=== PATIENT | male | born 1955 | race Caucasian/White ===

== ENCOUNTER 2022-08-05 12:45 | Emergency (ER) | payer OTHER ==
--- OUTSIDE RECORDS SUMMARY | 2022-08-05 12:50 | XMS REPORT | Continuity of Care Document ---
:1955 Author Organization [facility] t Address [address] [facility] [address] [place] [address] Care Team Providers Name Role Phone Viktoria Hernandez DO Primary Care Physician Yolanda Valadez MD Attending Clinician Provider, Unknown Attending Clinician Unavailable Duke German MA Attending Clinician Unavailable Nohemi Girard MA Attending Clinician Unavailable EDELMIRA DIAZ Attending Clinician Unavailable MD EDELMIRA DIAZ Attending Clinician Unavailable GOPAL GIORDANO Attending Clinician Unavailable YOLANDA VALADEZ Admitting Clinician Unavailable MD EDELMIRA DIAZ Admitting Clinician Unavailable Payers Payer Name Policy Type Policy Number Effective Date Expiration Date S ource Problems Condition Condition Condition Status Onset Resolution Last Treating Co mments Source Name Details Category Date Date Treatment Clinician Date Coronary Coronary Disease Active 2021-06 [facility] artery artery 2-21 st disease disease 00:00: Hospita due to due to 00 l lipid rich lipid rich plaque plaque Abnormal Abnormal Disease Active [facility] stress stress 8-08 st test test 00:00: Hospita 00 l Angina Angina Disease Active [facility] pectoris pectoris 8 st 00:00: [facility]osp[facility] 00 l CAD in CAD in Disease Active [facility] artery artery 00:00: [facility] 00 l Coronary Coronary Disease Active [facility] artery artery 2-07 st disease disease 00:00: [facility] involving involving [facility] [place] [facility] with heart with angina angina pectoris pectoris Primary Primary Disease Active [facility] hypertensi hypertensi 07-12 st on on 00:00: Hospita 00 l Hyperlipid Hyperlipid Disease Active [facility] emia emia 07-12 st 00:00: [facility]ospita 00 l History of History of Disease Active [facility] coronary coronary 07-12 st artery artery 00:00: Hospita stent stent 00 l placement placement Allergies, Adverse Reactions, Alerts Allergy Allergy Status Severity Reaction(s) Onset Inactive Treating Comm ents Source Name Type Date Date Clinician No Known Propensi Active Method i Drug ty to 11-03 Allergie adverse 00:00: Hospita s reaction 00 l s to drug Family History Family Member Diagnosis Comments Start Date Stop Date Source Natural father Cancer [facility] Natural father Other [facility] Natural mother Arthritis [facility] Social History Social Habit Start Date Stop Date Quantity Comments Source Alcohol intake 2022-06-23 2022-06-23 Current drink[facility] of [facility] 00:00:00 00:00:00 alcohol (finding) [facility] Tobacco use and 2019-02-05 2019-02-05 Smokeless tobacco [facility] exposure 00:00:00 00:00:00 non-user Hospital Alcohol Comment 2015-11-04 2015-11-04 Occasional [facility] 00:00:00 00:00:00 Hospital Sex Ass[birth year] At [birth year] M [facility] 00:00:00 00:00:00 Hospital Smoking Status Start Date Stop Date Source Never smoked tobacco [facility] Medications Ordered Filled Start Stop Current Ordering Indication Dosage Frequency Signature Comments Components Source Medication Medication Date Date Medication? Clinician (SIG) Name Name levothyroxi Yes 50ug QD Take 1 [facility] ne 2-14 tablet (50 st (SYNTHROID, 10:43: mcg total) Hospita LEVOXYL) 50 42 by mouth l mcg tablet daily. empaglifloz Yes 25mg QD Take 1 [facility] in 25 mg 2-14 tablet (25 st tablet 10:43: mg total) Hospit a 42 by mouth l nightly. clopidogreL 2022- 75mg QD Take 1 [facility] (PLAVIX) 75 - 05-20 tablet (75 s t mg tablet 00:00: 04:59 mg total) [facility]ita 00 :00 by mouth l daily for 120 doses. aspirin 2022-2022- Yes 81mg QD Take 1 [facility] (ECOTRIN) 06-23 05-20 tablet (81 st 81 MG 00:00: 04:59 mg total) Hospit a enteric 00 :00 by mouth l coated daily for tablet 120 doses. aspirin 81 2022-2022- Yes 81mg QD Chew 1 [facility] mg chewable 06-22-19 tablet (81 s t tablet 00:00: 04:59 mg total) [facility]pi ta 00 :00 daily for l 90 days. clopidogreL 2022- Yes 75mg QD Take 1 [facility] (PLAVIX) 75 06-22- tablet (75 s t mg tablet 00:00: 04:59 mg total) [facility] 00 :00 by mouth l daily for 90 days. hydroCHLORO 3-0 Yes 12.5mg QD Take 1 [facility] thiazide 1-[address] (MICROZIDE) 00:00: (12.5 mg Ho spita 12.5 mg 00 total) by l capsule mouth nightly. valsartan 3-0 Yes 80mg QD Take 0.5 [facility] (DIOVAN) 1-[address] 160 MG 00:00: (80 mg Hospita tablet 00 total) by l mouth nightly. hydroCHLORO 3-0 Yes 12.5mg QD Take 1 [facility] thiazide 1-[address] (MICROZIDE) 00:00: (12.5 mg Ho spita 12.5 mg 00 total) by l capsule mouth nightly. valsartan 3-0 Yes 80mg QD Take 0.5 [facility] (DIOVAN) 1-[address] 160 MG 00:00: (80 mg Hospita tablet 00 total) by l mouth nightly. hydroCHLORO 3-0 Yes 12.5mg QD Take 1 [facility] thiazide 1-[address] (MICROZIDE) 00:00: (12.5 mg [facility] 12.5 mg 00 total) by l capsule mouth nightly. valsartan 2023-0 Yes 80mg QD Take 0.5 [facility] (DIOVAN) 1-[address] 160 MG 00:00: (80 mg Hospita tablet 00 total) by l mouth nightly. levothyroxi 2023-0 Yes 50ug QD Take 50 [facility] ne 1-[address] (SYNTHROID, 08:37: mouth [facility]pi ta LEVOXYL) 50 03 daily. l mcg tablet empaglifloz 3-0 Yes 25mg QD Take 1 [facility] in 25 mg 1-06 tablet (25 st tablet 08:37: mg total) Hospit a 03 by mouth l nightly. levothyroxi 2023-0 Yes 50ug QD Take 50 [facility] ne 1-[address] (SYNTHROID, 08:37: mouth Hospi ta LEVOXYL) 50 03 daily. l mcg tablet empaglifloz 2023-0 Yes 25mg QD Take 1 [facility] in 25 mg 1-06 tablet (25 st tablet 08:37: mg total) Hospit a 03 by mouth l nightly. levothyroxi 2021-1 Yes 50ug QD Take 50 [facility] ne 2-[address] (SYNTHROID, 10:21: mouth Hospi ta LEVOXYL) 50 08 daily. l mcg tablet empaglifloz 2021-06 Yes 25mg QD Take 1 [facility] in 25 mg 2-22 tablet (25 st tablet 10:21: mg total) Hospit a 08 by mouth l nightly. levothyroxi 2021- Yes 50ug QD Take 50 [facility] ne 2-[address] (SYNTHROID, 10:21: mouth Hospi ta LEVOXYL) 50 08 daily. l mcg tablet empaglifloz 2021-1 Yes 25mg QD Take 1 [facility] in 25 mg 2-22 tablet (25 st tablet 10:21: mg total) Hospit a 08 by mouth l nightly. levothyroxi 2021-1 Yes 50ug QD Take 50 [facility] ne 2-[address] (SYNTHROID, 10:21: mouth [facility]pi ta LEVOXYL) 50 08 daily. l mcg tablet empaglifloz 2021-1 Yes 25mg QD Take 1 [facility] in 25 mg 2-22 tablet (25 st tablet 10:21: mg total) Hospit a 08 by mouth l nightly. aspirin 81 2021-2022- Yes 81mg QD Chew 1 [facility] mg chewable 2-22 03-23 tablet (81 s t tablet 00:00: 04:59 mg total) [facility]pi ta 00 :00 daily for l 90 days. clopidogreL 2021-06- Yes 75mg QD Take 1 [facility] (PLAVIX) 75 2-23 tablet (75 s t mg tablet 00:00: 04:59 mg total) [facility]ita 00 :00 by mouth l daily for 90 days. aspirin 81 2021-06- Yes 81mg QD Chew 1 [facility] mg chewable 2-23 tablet (81 s t tablet 00:00: 04:59 mg total) [facility] 00 :00 daily for l 90 days. clopidogreL 2021-06- Yes 75mg QD Take 1 [facility] (PLAVIX) 75 2-23 tablet (75 s t mg tablet 00:00: 04:59 mg total) [facility] 00 :00 by mouth l daily for 90 days. aspirin 2021-06- Yes 81mg QD Chew 1 [facility] mg chewable 07-27- tablet (81 s t tablet 00:00: 04:59 mg total) [facility]pi ta 00 :00 daily for l 90 days. clopidogreL 2021-06- Yes 75mg QD Take 1 [facility] (PLAVIX) 75 07-27-23 tablet (75 s t mg tablet 00:00: 04:59 mg total) [facility] 00 :00 by mouth l daily for 90 days. aspirin 81 2021-06- Yes 81mg QD Chew 1 [facility] mg chewable 07-27- tablet (81 s t tablet 00:00: 04:59 mg total) [facility]pi ta 00 :00 daily for l 90 days. clopidogreL 2021-06- Yes 75mg QD Take 1 [facility] (PLAVIX) 75 2-23 tablet (75 s t mg tablet 00:00: 04:59 mg total) [facility] 00 :00 by mouth l daily for 90 days. aspirin 81 2021-06- Yes 81mg QD Chew 1 [facility] mg chewable 2-23 tablet (81 s t tablet 00:00: 04:59 mg total) [facility]pi ta 00 :00 daily for l 90 days. clopidogreL 2021-06- Yes 75mg QD Take 1 [facility] (PLAVIX) 75 07-27 tablet (75 s t mg tablet 00:00: 04:59 mg total) [facility] 00 :00 by mouth l daily for 90 days. aspirin 81 2021-06 No 81mg QD Chew 1 [facility] mg chewable 07-27 tablet (81 s t tablet 00:00: 00:00 mg total) [facility]pi ta 00 :00 daily for l 90 days. clopidogreL 2021-06 No 75mg QD Take 1 [facility] (PLAVIX) 75 07-27 tablet (75 s t mg tablet 00:00: 00:00 mg total) [facility] 00 :00 by mouth l daily for 90 days. atorvastati 2021-06 Yes [id number] 40mg QD Take 1 [facility] (LIPITOR) 2-06 tablet (40 st 40 mg 00:00: mg total) [facility]ospita tablet 00 by mouth l daily. fenofibrate 2021-06 Yes 145mg QD Take 1 [facility] (TRICOR) 2-[address] 145 MG 00:00: (145 mg Hospita tablet 00 total) by l mouth daily. icosapent 2021-06 Yes 2g Q.5D Take 2 [facility] i ethyL 2-[address] (Vascepa) 1 00:00: (2 g Hospit a gram 00 total) by l capsule mouth 2 (two) times a day with meals. atorvastati 2021-06 Yes [id number] 40mg QD Take 1 [facility] n (LIPITOR) 2-06 tablet (40 st 40 mg 00:00: mg total) [facility]ospita tablet 00 by mouth l daily. fenofibrate 2021-06 Yes 145mg QD Take 1 [facility] (TRICOR) 2-[address] 145 MG 00:00: (145 mg [facility]ospita tablet 00 total) by l mouth daily. icosapent 2021-06 Yes 2g Q.5D Take 2 [facility] ethyL 2-[address] (Vascepa) 1 00:00: (2 g Hospit a gram 00 total) by l capsule mouth 2 (two) times a day with meals. atorvastati 2021-06 Yes [id number] 40mg QD Take 1 [facility] n (LIPITOR) 2-06 tablet (40 st 40 mg 00:00: mg total) [facility]ospita tablet 00 by mouth l daily. fenofibrate 2021-06 Yes 145mg QD Take 1 [facility] (TRICOR) 2-[address] 145 MG 00:00: (145 mg Hospita tablet 00 total) by l mouth daily. icosapent 2021-06 Yes 2g Q.5D Take 2 [facility] ethyL 2-[address] (Vascepa) 1 00:00: (2 g Hospit a gram 00 total) by l capsule mouth 2 (two) times a day with meals. atorvastati 2021-06 Yes [id number] 40mg QD Take 1 [facility] n (LIPITOR) 2-06 tablet (40 st 40 mg 00:00: mg total) [facility]ospita tablet 00 by mouth l daily. fenofibrate 2021-06 Yes 145mg QD Take 1 [facility] (TRICOR) 2-[address] 145 MG 00:00: (145 mg Hospita tablet 00 total) by l mouth daily. icosapent 2021-06 Yes 2g Q.5D Take 2 [facility] ethyL 2-[address] (Vascepa) 1 00:00: (2 g Hospit a gram 00 total) by l capsule mouth 2 (two) times a day with meals. atorvastati 2021-06 Yes [id number] 40mg QD Take 1 [facility] n (LIPITOR) 2-06 tablet (40 st 40 mg 00:00: mg total) [facility]ospita tablet 00 by mouth l daily. fenofibrate 2021-06 Yes 145mg QD Take 1 [facility] (TRICOR) 2-[address] 145 MG 00:00: (145 mg [facility]ospita tablet 00 total) by l mouth daily. icosapent 2021-06 Yes 2g Q.5D Take 2 [facility] ethyL 2-[address] (Vascepa) 1 00:00: (2 g Hospit a gram 00 total) by l capsule mouth 2 (two) times a day with meals. atorvastati 2021-06 Yes [id number] 40mg QD Take 1 [facility] n (LIPITOR) 2-06 tablet (40 st 40 mg 00:00: mg total) Hospita tablet 00 by mouth l daily. fenofibrate 2021-06 Yes 145mg QD Take 1 [facility] (TRICOR) 2-[address] 145 MG 00:00: (145 mg Hospita tablet 00 total) by l mouth daily. icosapent 2021-06 Yes 2g Q.5D Take 2 [facility] ethyL 2- capsules st (Vascepa) 1 00:00: (2 g Hospit a gram 00 total) by l capsule mouth 2 (two) times a day with meals. valsartan 2021-06- Yes [id number] 80mg QD Take 1 [facility] (DIOVAN) 80 07-11 tablet (80 s t MG tablet 00:00: 05:59 mg total) [facility]ita 00 :00 by mouth l daily. valsartan 2021-06- Yes [id number] 80mg QD Take 1 [facility] (DIOVAN) 80 07-11 tablet (80 s t MG tablet 00:00: 05:59 mg total) [facility] spita 00 :00 by mouth l daily. valsartan 2021-06- Yes [id number] 80mg QD Take 1 [facility] (DIOVAN) 80 07-11 tablet (80 s t MG tablet 00:00: 05:59 mg total) [facility] 00 :00 by mouth l daily. valsartan 2021-06- Yes [id number] 80mg QD Take 1 [facility] (DIOVAN) 80 07-11 tablet (80 s t MG tablet 00:00: 05:59 mg total) [facility] spita 00 :00 by mouth l daily. valsartan 2021-06- Yes [id number] 80mg QD Take 1 [facility] (DIOVAN) 80 07-11 tablet (80 s t MG tablet 00:00: 05:59 mg total) [facility] spita 00 :00 by mouth l daily. valsartan 2021-06- Yes [id number] 80mg QD Take 1 [facility] (DIOVAN) 80 07-11 tablet (80 s t MG tablet 00:00: 05:59 mg total) [facility]ita 00 :00 by mouth l daily. clopidogreL 2021-06- No 75mg QD Take 1 [facility] (PLAVIX) 75 07-11 tablet (75 s t mg tablet 00:00: 00:00 mg total) [facility] spita 00 :00 by mouth l daily. clopidogreL 2021-06- No 75mg QD Take 1 [facility] (PLAVIX) 75 07-11 tablet (75 s t mg tablet 00:00: 00:00 mg total) [facility] spita 00 :00 by mouth l daily. clopidogreL 2021-06 No 75mg QD Take 1 [facility] (PLAVIX) 75 07-11 tablet (75 s t mg tablet 00:00: 00:00 mg total) [facility] spita 00 :00 by mouth l daily. clopidogreL 2021-06 No 75mg QD Take 1 [facility] (PLAVIX) 75 07-11 tablet (75 s t mg tablet 00:00: 00:00 mg total) [facility] spita 00 :00 by mouth l daily. clopidogreL 2021-06 No 75mg QD Take 1 [facility] (PLAVIX) 75 07-11 tablet (75 s t mg tablet 00:00: 00:00 mg total) [facility] spita 00 :00 by mouth l daily. clopidogreL 2021-06 No 75mg QD Take 1 [facility] (PLAVIX) 75 07-11 tablet (75 s t mg tablet 00:00: 00:00 mg total) [facility]ita 00 :00 by mouth l daily. valsartan 2021- No [id number] 80mg QD Take 1 [facility] (DIOVAN) 80 11-09 tablet (80 s t MG tablet 00:00: 00:00 mg total) [facility]ita 00 :00 by mouth l daily. valsartan 2021- No [id number] 80mg QD Take 1 [facility] (DIOVAN) 80 11-09 tablet (80 s t MG tablet 00:00: 00:00 mg total) [facility] 00 :00 by mouth l daily. valsartan 2021- No [id number] 80mg QD Take 1 [facility] (DIOVAN) 80 11-09 tablet (80 s t MG tablet 00:00: 00:00 mg total) [facility] 00 :00 by mouth l daily. valsartan 2021- No [id number] 80mg QD Take 1 [facility] (DIOVAN) 80 11-09 tablet (80 s t MG tablet 00:00: 00:00 mg total) [facility] 00 :00 by mouth l daily. valsartan 2021- No [id number] 80mg QD Take 1 [facility] (DIOVAN) 80 11-09 tablet (80 s t MG tablet 00:00: 00:00 mg total) [facility] 00 :00 by mouth l daily. valsartan 2021- No [id number] 80mg QD Take 1 [facility] (DIOVAN) 80 11-09 tablet (80 s t MG tablet 00:00: 00:00 mg total) [facility] 00 :00 by mouth l daily. hydroCHLORO 2020-06 Yes 12.5mg QD Take 1 [facility] thiazide 2-[address] (MICROZIDE) 00:00: (12.5 mg Ho spita 12.5 mg 00 total) by l capsule mouth daily. hydroCHLORO 2020-06 Yes 12.5mg QD Take 1 [facility] thiazide 2-[address] (MICROZIDE) 00:00: (12.5 mg [facility] spita 12.5 mg 00 total) by l capsule mouth daily. hydroCHLORO 2020-06 Yes 12.5mg QD Take 1 [facility] thiazide 2-[address] (MICROZIDE) 00:00: (12.5 mg [facility] sp[facility] 12.5 mg 00 total) by l capsule mouth daily. hydroCHLORO 2020-06- No 12.5mg QD Take 1 [facility] thiazide 2-07 -[address] (MICROZIDE) 00:00: 00:00 (12.5 mg H ospita 12.5 mg 00 :00 total) by l capsule mouth daily. hydroCHLORO 2020-06- No 12.5mg QD Take 1 [facility] thiazide 2-07 -[address] (MICROZIDE) 00:00: 00:00 (12.5 mg H ospita 12.5 mg 00 :00 total) by l capsule mouth daily. hydroCHLORO 2020-06 No 12.5mg QD Take 1 [facility] thiazide 2-07 -[address] (MICROZIDE) 00:00: 00:00 (12.5 mg H ospita 12.5 mg 00 :00 total) by l capsule mouth daily. valsartan 2020-06- No 160mg QD Take 1 [facility] (DIOVAN) 07-[address] 160 MG 00:00: 00:00 (160 mg [facility]ospita tablet 00 :00 total) by l mouth every morning. valsartan 2020-06- No 160mg QD Take 1 [facility] (DIOVAN) 07-[address] 160 MG 00:00: 00:00 (160 mg Hospita tablet 00 :00 total) by l mouth every morning. valsartan 2020-06- No 160mg QD Take 1 [facility] (DIOVAN) 07-[address] 160 MG 00:00: 00:00 (160 mg [facility]ospita tablet 00 :00 total) by l mouth every morning. valsartan 2020-06- No 160mg QD Take 1 [facility] (DIOVAN) 07-[address] 160 MG 00:00: 00:00 (160 mg [facility]ospita tablet 00 :00 total) by l mouth every morning. valsartan 2020-06 No 160mg QD Take 1 [facility] (DIOVAN) 07-[address] 160 MG 00:00: 00:00 (160 mg [facility]ospita tablet 00 :00 total) by l mouth every morning. valsartan 2020-06 No 160mg QD Take 1 [facility] (DIOVAN) 07-[address] 160 MG 00:00: 00:00 (160 mg [facility]ospita tablet 00 :00 total) by l mouth every morning. fenofibrate 2020-06 No 145mg QD Take 1 [facility] (TRICOR) 07-[address] 145 MG 00:00: 00:00 (145 mg [facility]ospita tablet 00 :00 total) by l mouth daily. clopidogreL 2020-06- No 75mg QD Take 1 [facility] (PLAVIX) 75 07-12 tablet (75 s t mg tablet 00:00: 00:00 mg total) [facility] 00 :00 by mouth l daily. atorvastati 2020-06- No [id number] 40mg QD Take 1 [facility] (LIPITOR) 07-12 tablet (40 s t 40 mg 00:00: 00:00 mg total) Hospit a tablet 00 :00 by mouth l daily. icosapent 2020-06- No 2g Q.5D Take 2 [facility] ethyL 07-[address] (Vascepa) 1 00:00: 00:00 (2 g Hospi ta gram 00 :00 total) by l capsule mouth 2 (two) times a day with meals. fenofibrate 2020-06 No 145mg QD Take 1 [facility] (TRICOR) 07-[address] 145 MG 00:00: 00:00 (145 mg [facility]ospita tablet 00 :00 total) by l mouth daily. clopidogreL 2020-06 No 75mg QD Take 1 [facility] (PLAVIX) 75 07-12 tablet (75 s t mg tablet 00:00: 00:00 mg total) [facility] 00 :00 by mouth l daily. atorvastati 2020-06- No [id number] 40mg QD Take 1 [facility] (LIPITOR) 07-12 tablet (40 s t 40 mg 00:00: 00:00 mg total) Hospit a tablet 00 :00 by mouth l daily. icosapent 2020-06- No 2g Q.5D Take 2 [facility] ethyL 07-[address] (Vascepa) 1 00:00: 00:00 (2 g Hospi ta gram 00 :00 total) by l capsule mouth 2 (two) times a day with meals. fenofibrate 2020-06 No 145mg QD Take 1 [facility] (TRICOR) 07-[address] 145 MG 00:00: 00:00 (145 mg [facility]ospita tablet 00 :00 total) by l mouth daily. clopidogreL 2020-06 No 75mg QD Take 1 [facility] (PLAVIX) 75 07-12 tablet (75 s t mg tablet 00:00: 00:00 mg total) [facility] 00 :00 by mouth l daily. atorvastati 2020-06- No [id number] 40mg QD Take 1 [facility] (LIPITOR) 07-12 tablet (40 s t 40 mg 00:00: 00:00 mg total) Hospit a tablet 00 :00 by mouth l daily. icosapent 2020-06- No 2g Q.5D Take 2 [facility] ethyL 07-[address] (Vascepa) 1 00:00: 00:00 (2 g Hos[facility] ta gram 00 :00 total) by l capsule mouth 2 (two) times a day with meals. fenofibrate 2020-06- No 145mg QD Take 1 [facility] (TRICOR) 2- tablet st 145 MG 00:00: 00:00 (145 mg [facility]ospita tablet 00 :00 total) by l mouth daily. clopidogreL 2020-06 No 75mg QD Take 1 [facility] (PLAVIX) 75 07-12 tablet (75 s t mg tablet 00:00: 00:00 mg total) [facility] 00 :00 by mouth l daily. atorvastati 2020-06- No [id number] 40mg QD Take 1 [facility] (LIPITOR) 07-12 tablet (40 s t 40 mg 00:00: 00:00 mg total) Hospit a tablet 00 :00 by mouth l daily. icosapent 2020-06- No 2g Q.5D Take 2 [facility] ethyL 07-[address] (Vascepa) 1 00:00: 00:00 (2 g Hospi ta gram 00 :00 total) by l capsule mouth 2 (two) times a day with meals. fenofibrate 2020-06 No 145mg QD Take 1 [facility] (TRICOR) 07-[address] 145 MG 00:00: 00:00 (145 mg [facility]ospita tablet 00 :00 total) by l mouth daily. clopidogreL 2020-06 No 75mg QD Take 1 [facility] (PLAVIX) 75 07-12- tablet (75 s t mg tablet 00:00: 00:00 mg total) [facility] 00 :00 by mouth l daily. atorvastati 2020-06- No [id number] 40mg QD Take 1 [facility] (LIPITOR) 07-12- tablet (40 s t 40 mg 00:00: 00:00 mg total) Hospit a tablet 00 :00 by mouth l daily. icosapent 2020-06- No 2g Q.5D Take 2 [facility] ethyL 07-[address] (Vascepa) 1 00:00: 00:00 (2 g Hospi ta gram 00 :00 total) by l capsule mouth 2 (two) times a day with meals. fenofibrate 2020-06 No 145mg QD Take 1 [facility] (TRICOR) 07-[address] 145 MG 00:00: 00:00 (145 mg [facility]ospita tablet 00 :00 total) by l mouth daily. clopidogreL 2020-06- No 75mg QD Take 1 [facility] (PLAVIX) 75 07-12 tablet (75 s t mg tablet 00:00: 00:00 mg total) [facility] 00 :00 by mouth l daily. atorvastati 2020-06- No [id number] 40mg QD Take 1 [facility] (LIPITOR) 07-12 tablet (40 s t 40 mg 00:00: 00:00 mg total) Hospit a tablet 00 :00 by mouth l daily. icosapent 2020-06- No 2g Q.5D Take 2 [facility] ethyL 07-[address] (Vascepa) 1 00:00: 00:00 (2 g Hospi ta gram 00 :00 total) by l capsule mouth 2 (two) times a day with meals. celecoxib 2021- No Take by [facility] (CeleBREX) 11-[address] 200 MG 00:00: 00:00 needed. [facility]ospita capsule 00 :00 l celecoxib 2021- No Take by [facility] (CeleBREX) 11-[address] 200 MG 00:00: 00:00 needed. [facility]osp[facility] capsule 00 :00 l celecoxib 2021- No Take by [facility] (CeleBREX) 11-[address] 200 MG 00:00: 00:00 needed. [facility]osp[facility] capsule 00 :00 l celecoxib 2021- No Take by [facility] (CeleBREX) 11-[address] 200 MG 00:00: 00:00 needed. [facility]ospita capsule 00 :00 l celecoxib 2019-0 2022- No Take by [facility] (CeleBREX) 11-14-[address] 200 MG 00:00: 00:00 needed. [facility]ospita capsule 00 :00 l celecoxib 2021- No Take by [facility] (CeleBREX) 11-14-[address] 200 MG 00:00: 00:00 needed. Hospita capsule 00 :00 l VICTOZA 2016-06 Yes [id number] INJECT [facility] 3-CYNTHIA 0.6 0-[address] mg/0.1 mL 00:00: SKIN 1.8MG [facility] (18 mg/3 00 DAILY l mL) pen injector VICTOZA 2016-06 Yes [id number] INJECT [facility] 3-CYNTHIA 0.6 0-[address] mg/0.1 mL 00:00: SKIN 1.8MG [facility] (18 mg/3 00 DAILY l mL) pen injector VICTOZA 2016-06 Yes [id number] INJECT [facility] 3-CYNTHIA 0.6 0-[address] mg/0.1 mL 00:00: SKIN 1.8MG [facility] (18 mg/3 00 DAILY l mL) pen injector VICTOZA 2016-06 Yes [id number] INJECT [facility] 3-CYNTHIA 0.6 0-[address] mg/0.1 mL 00:00: SKIN 1.8MG [facility] (18 mg/3 00 DAILY l mL) pen injector VICTOZA 2016-06 Yes [id number] INJECT [facility] 3-CYNTHIA 0.6 0-[address] mg/0.1 mL 00:00: SKIN 1.8MG [facility] (18 mg/3 00 DAILY l mL) pen injector VICTOZA 2016-06 Yes [id number] INJECT [facility] 3-CYNTHIA 0.6 0-[address] mg/0.1 mL 00:00: SKIN 1.8MG [facility] (18 mg/3 00 DAILY l mL) pen injector aspirin 2021- No 81mg QD Chew 1 [facility] mg chewable 8-18 -22 tablet (81 s t tablet 00:00: 00:00 mg total) [facility]pi ta 00 :00 daily. l aspirin 81 2021- No 81mg QD Chew 1 [facility] mg chewable 8-18 12-22 tablet (81 s t tablet 00:00: 00:00 mg total) Hospi ta 00 :00 daily. l aspirin 81 2021- No 81mg QD Chew 1 [facility] mg chewable 8-18 12-22 tablet (81 s t tablet 00:00: 00:00 mg total) Hospi ta 00 :00 daily. l aspirin 81 2021- No 81mg QD Chew 1 [facility] mg chewable 8-18 12-22 tablet (81 s t tablet 00:00: 00:00 mg total) Hospi ta 00 :00 daily. l aspirin 81 2021- No 81mg QD Chew 1 [facility] mg chewable 8-18 12-22 tablet (81 s t tablet 00:00: 00:00 mg total) Hospi ta 00 :00 daily. l aspirin 81 2021- No 81mg QD Chew 1 [facility] mg chewable 8-18 12-22 tablet (81 s t tablet 00:00: 00:00 mg total) Hospi ta 00 :00 daily. l insulin 2015-06 Yes [id number] 60U QD Inject 60 [facility] degludec 0-[address] (TRESIBA 00:00: [facility] the [facility] FLEXTOUCH 00 skin l U-200) 200 nightly. unit/mL (3 mL) insulin pen insulin 2015-06 Yes [id number] 34U Q.[id number] Inject 34 [facility] lispro 0-[id number] (HumaLOG 00:00: 3D under the [facility] KwikPen) 00 skin 3 l 200 unit/mL (three) (3 mL) times a insulin pen day before meals. insulin 2015-06 Yes [id number] 60U QD Inject 60 M [facility]i degludec 0-[address] (TRESIBA 00:00: under the [facility] FLEXTOUCH 00 skin l U-200) 200 nightly. unit/mL (3 mL) insulin pen insulin 2015-06 Yes [id number] 34U Q.[id number] Inject 34 [facility] lispro 0-[id number] (HumaLOG 00:00: 3D under the [facility] KwikPen) 00 skin 3 l 200 unit/mL (three) (3 mL) times a insulin pen day before meals. insulin 2015-06 Yes [id number] 60U QD Inject 60 M [facility]i degludec 0-[address] (TRESIBA 00:00: under the [facility] FLEXTOUCH 00 skin l U-200) 200 nightly. unit/mL (3 mL) insulin pen insulin 2015-06 Yes [id number] 34U Q.[id number] Inject 34 [facility] lispro 0-[id number] (HumaLOG 00:00: 3D under the [facility] KwikPen) 00 skin 3 l 200 unit/mL (three) (3 mL) times a insulin pen day before meals. insulin 2015-06 Yes [id number] 60U QD Inject 60 M ethodi degludec 0-[address] ([facility] 00:00: [facility] FLEXTOUCH 00 skin l U-200) 200 nightly. unit/mL (3 mL) insulin pen insulin 2015-06 Yes [id number] 34U [id number] Inject 34 Methodi lispro 0-[id number] (HumaLOG 00:00: 3D [facility] KwikPen) 00 skin 3 l 200 unit/mL (three) (3 mL) times a insulin pen day before meals. insulin 2015-06 Yes [id number] 60U QD Inject 60 M ethodi degludec 0-[address] ([facility] 00:00: [facility] FLEXTOUCH 00 skin l U-200) 200 nightly. unit/mL (3 mL) insulin pen insulin 2015-06 Yes [id number] 34U Q.[id number] Inject 34 Methodi lispro 0-[id number] (HumaLOG 00:00: 3D [facility] KwikPen) 00 skin 3 l 200 unit/mL (three) (3 mL) times a insulin pen day before meals. insulin 2015-06 Yes [id number] 60U QD Inject 60 M ethodi degludec 0-[address] ([facility] 00:00: [facility] FLEXTOUCH 00 skin l U-200) 200 nightly. unit/mL (3 mL) insulin pen insulin 2015-06 Yes [id number] 34U Q.[id number] Inject 34 [facility] lispro 0-[id number] (HumaLOG 00:00: [facility]D [facility] KwikPen) 00 skin 3 l 200 unit/mL (three) (3 mL) times a insulin pen day before meals. Immunizations Ordered Immunization Filled Immunization Date Status Commen ts Source Name Name PFIZER COVID-19 MRNA 2021-03-18 Completed [facility] VACCINATION 00:00:00 [facility] PFIZER COVID-19 MRNA 2021-03-18 Completed [facility] VACCINATION 00:00:00 [facility] PFIZER COVID-19 MRNA 2021-03-18 Completed [facility] VACCINATION 00:00:00 [facility] PFIZER COVID-19 MRNA 2021-03-18 Completed [facility]ist VACCINATION 00:00:00 [facility] PFIZER COVID-19 MRNA 2021-03-18 Completed [facility] VACCINATION 00:00:00 [facility] PFIZER COVID-19 MRNA 2021-03-18 Completed [facility] VACCINATION 00:00:00 [facility] PFIZER COVID-19 MRNA 2020-08-01 Completed [facility] VACCINATION 00:00:00 [facility] PFIZER COVID-19 MRNA 2020-08-01 Completed [facility] VACCINATION 00:00:00 [facility] PFIZER COVID-19 MRNA 2020-08-01 Completed [facility] VACCINATION 00:00:00 [facility] PFIZER COVID-19 MRNA 2020-08-01 Completed [facility] VACCINATION 00:00:00 [facility] PFIZER COVID-19 MRNA 2020-08-01 Completed [facility] VACCINATION 00:00:00 [facility] PFIZER COVID-19 MRNA 2020-08-01 Completed [facility] VACCINATION 00:00:00 [facility] PFIZER COVID-19 MRNA 2020-07-11 Completed [facility] VACCINATION 00:00:00 [facility] PFIZER COVID-19 MRNA 2020-07-11 Completed [facility] VACCINATION 00:00:00 [facility] PFIZER COVID-19 MRNA 2020-07-11 Completed [facility] VACCINATION 00:00:00 [facility] PFIZER COVID-19 MRNA 2020-07-11 Completed [facility] VACCINATION 00:00:00 [facility] PFIZER COVID-19 MRNA 2020-07-11 Completed [facility] VACCINATION 00:00:00 [facility] PFIZER COVID-19 MRNA 2020-07-11 Completed [facility] VACCINATION 00:00:00 [facility] Pneumococcal 2014-03-24 Completed [facility] Polysaccharide 00:00:00 [facility] Pneumococcal 2014-03-24 Completed [facility] Polysaccharide 00:00:00 [facility] Pneumococcal 2014-03-24 Completed [facility] Polysaccharide 00:00:00 [facility] Pneumococcal 2014-03-24 Completed [facility] Polysaccharide 00:00:00 [facility] Pneumococcal 2014-03-24 Completed [facility] Polysaccharide 00:00:00 [facility] Pneumococcal 2014-03-24 Completed [facility] Polysaccharide 00:00:00 Hospital Vital Signs Vital Name Observation Time Observation Value Comments Source Systolic blood 2022-07-19 16:43:00 112 mm[Hg] [facility] pressure Diastolic blood 2022-07-19 16:43:00 56 mm[Hg] [facility] pressure Heart rate 2022-07-19 16:43:00 70 /min [facility] Body height 2022-07-19 16:43:00 177.8 cm [facility] Body weight 2022-07-19 16:43:00 98.431 kg [facility] BMI 2022-07-19 16:43:00 31.14 kg/m2 [facility] Oxygen saturation in 2022-06-22 22:00:00 97 /min [facility] Arterial blood by Pulse oximetry Respiratory rate 2022-06-22 21:45:00 17 /min [facility] Body temperature 2022-06-22 21:00:00 36.39 Aida [facility] Systolic blood 2022-06-10 14:36:00 128 mm[Hg] [facility] pressure Diastolic blood 2022-06-10 14:36:00 74 mm[facility]Hg[facility] Heart rate 2022-06-10 14:36:00 70 /min [facility] Body height 2022-06-10 14:36:00 177.8 cm [facility] Body weight 2022-06-10 14:36:00 97.523 kg [facility] BMI 2022-06-10 14:36:00 30.85 kg/m2 [facility] Systolic blood 2022-05-26 14:16:25 128 mm[Hg] [facility] pressure Diastolic blood 2022-05-26 14:16:25 71 mm[Hg[facility] Heart rate 2022-05-26 14:16:25 60 /min [facility] Body temperature 2022-05-26 14:16:25 36.22 Aida [facility] Respiratory rate 2022-05-26 14:16:25 18 /min [facility] Oxygen saturation in 2022-05-26 14:16:25 94 /min [facility] Arterial blood by Pulse oximetry Body weight 2022-05-26 11:03:39 99.791 kg [facility] BMI 2022-05-26 11:03:39 31.57 kg/m2 [facility] Body height 2022-05-25 17:52:00 177.8 cm [facility] Procedures Procedure Date / Time Performing Clinician Source Performed ECG PRE/POST OP 2022-06-22 17:24:54 Yolanda Valadez spital POC GLUCOSE 2022-06-22 17:17:00 Yolanda Valadez spital CV PCI STENT 2022-06-22 16:32:32 Yolanda Valadez spital ACTIVATED CLOTTING TIME 2022-06-22 16:05:00 [facility] CREATINE KINASE, TOTAL 2022-06-22 14:39:00 [facility] TROPONIN T 2022-06-22 14:39:00 Yolanda Valadez spital CBC WITH PLATELET AND 2022-06-22 14:39:00 Rory Yolanda [facility] DIFFERENTIAL COMPREHENSIVE METABOLIC 2022-06-22 14:39:00 [facility] PANEL ESTIMATED GFR 2022-06-22 14:39:00 Yolanda Valadez spital ECG 12-LEAD 2022-06-22 14:37:58 Yolanda Valadez spital POC GLUCOSE 2022-06-22 13:29:00 Yolanda Valadez spital AST (SGOT) 2022-06-15 15:45:00 Yolanda Valadez spital LIPID PANEL 2022-06-15 15:45:00 Yolanda Valadez spital CBC WITH PLATELET AND 2022-06-15 15:25:00 [facility] DIFFERENTIAL PROTHROMBIN TIME WITH INR 2022-06-15 15:25[facility] 2022-06-15 15:25:00 [facility] PANEL ESTIMATED GFR 2022-06-15 15:25:00 Yolanda Valadez Ho spital POC GLUCOSE 2022-05-26 15:08:00 Yolanda Valadez spital BASIC METABOLIC PANEL 2022-05-26 03:31:00 [facility] CBC WITH PLATELET AND 2022-05-26 03:31:00 [facility] DIFFERENTIAL ESTIMATED GFR 2022-05-26 03:31:00 Yolanda Valadez spital POC GLUCOSE 2022-05-26 02:05:00 Yolanda Valadez Ho spital POC GLUCOSE 2022-05-26 00:38:00 Yolanda Valadez Ho spital POC GLUCOSE 2022-05-25 23:33:00 Yolanda Valadez spital ECG PRE/POST OP 2022-05-25 22:46:30 [facility] IVUS CORONARY 2022-05-25 22:13:55 [facility] ACTIVATED CLOTTING TIME 2022-05-25 21:26:00 [facility] PRE/POST OP 2022-05-25 18:06:37 Yolanda Valadez spital POC GLUCOSE 2022-05-25 18:02:00 Yolanda Valadez spital CBC WITH PLATELET AND 2022-05-23 13:50:00 Yolanda Valadez [facility] DIFFERENTIAL COMPREHENSIVE METABOLIC 2022-05-23 13:50[facility] 2022-05-23 13:50:00 Yolanda Valadez [facility] CV STRESS TEST NUCLEAR 2022-05-04 20:53:[address] [facility] [place] [place] CARDIO NM MYOCARDIAL PERFUSION 2022-05-04 20:53:48 [facility] REST STRESS 1 DAY Plan of Care Planned Activity Planned Date Details Comments Source Future Scheduled 2022-07-26 Hepatitis C screening [facility] Test 12:50:44 (procedure) [code = 427467820] Future Scheduled 2022-07-26 COLONOSCOPY SCREENING Me [facility] Test 12:50:44 [code = COLONOSCOPY SCREENING] Future Scheduled 2022-07-26 HEPATITIS B VACCINES [facility] Test 12:50:44 (1 of 3 - Risk 3-dose series) [code = HEPATITIS B VACCINES (1 of 3 - Risk 3-dose series)] Future Scheduled 2022-07-26 65+ PNEUMOCOCCAL [facility] Test 12:50:44 VACCINE (2 - PCV) [code = 65+ PNEUMOCOCCAL VACCINE (2 - PCV)] Future Scheduled 2022-07-26 SHINGLES VACCINES (2 [facility] Test 12:50:44 of 2) [code = SHINGLES VACCINES (2 of 2)] Future Scheduled 2022-07-26 INFLUENZA VACCINE [facility] Test 12:50:44 [code = INFLUENZA VACCINE] Future Scheduled 2022-06-20 Hepatitis C screening [facility] Test 14:43:04 (procedure) [code = 462701043] Future Scheduled 2022-06-20 COLONOSCOPY SCREENING [facility] Test 14:43:04 [code = COLONOSCOPY SCREENING] Future Scheduled 2022-06-20 65+ P[facility]UMOCOCCAL [facility] Test 14:43:04 VACCINE (2 - PCV) [code = 65+ PNEUMOCOCCAL VACCINE (2 - PCV)] Future Scheduled 2022-06-20 SHINGLES VACCINES (2 [facility] Test 14:43:04 of 2) [code = SHINGLES VACCINES (2 of 2)] Future Scheduled 2022-06-20 INFLUENZA VACCINE [facility] Test 14:43:04 [code = INFLUENZA VACCINE] Future Scheduled 2022-06-17 Hepatitis C screening [facility] Test 14:02:46 (procedure) [code = [id number]] Future Scheduled 2022-06-17 COLONOSCOPY SCREENING [facility] Test 14:02:46 [code = COLONOSCOPY SCREENING] Future Scheduled 2022-06-17 65+ P[facility]UMOCOCCAL [facility] Test 14:02:46 VACCINE (2 - PCV) [code = 65+ PNEUMOCOCCAL VACCINE (2 - PCV)] Future Scheduled 2022-06-17 SHINGLES VACCINES (2 [facility] Test 14:02:46 of 2) [code = SHINGLES VACCINES (2 of 2)] Future Scheduled 2022-06-17 INFLUENZA VACCINE [facility] Test 14:02:46 [code = INFLUENZA VACCINE] Future Scheduled 2022-06-08 Hepatitis C screening [facility] Test 15:14:00 (procedure) [code = [id number]] Future Scheduled 2022-06-08 COLONOSCOPY SCREENING [facility] Test 15:14:00 [code = COLONOSCOPY SCREENING] Future Scheduled 2022-06-08 HEPATITIS B VACCINES Met [facility] Test 15:14:00 (1 of 3 - Risk 3-dose series) [code = HEPATITIS B VACCINES (1 of 3 - Risk 3-dose series)] Future Scheduled 2022-06-08 65+ [facility]:14:00 VACCINE (2 - PCV) [code = 65+ PNEUMOCOCCAL VACCINE (2 - PCV)] Future Scheduled 2022-06-08 SHINGLES VACCINES (2 Met [facility] Test 15:14:00 of 2) [code = SHINGLES VACCINES (2 of 2)] Future Scheduled 2022-06-08 INFLUENZA VACCINE Method [facility] Test 15:14:00 [code = INFLUENZA VACCINE] Future Scheduled 2022-06-08 Hepatitis C screening [facility] Test 15:14:00 (procedure) [code = [id number]] Future Scheduled 2022-06-08 COLONOSCOPY SCREENING [facility] Test 15:14:00 [code = COLONOSCOPY SCREENING] Future Scheduled 2022-06-08 HEPATITIS B VACCINES Met [facility] Test 15:14:00 (1 of 3 - Risk 3-dose series) [code = HEPATITIS B VACCINES (1 of 3 - Risk 3-dose series)] Future Scheduled 2022-06-08 65+ [facility]CCAL [facility] 15:14:00 VACCINE (2 - PCV) [code = 65+ PNEUMOCOCCAL VACCINE (2 - PCV)] Future Scheduled 2022-06-08 SHINGLES VACCINES (2 Met [facility] Test 15:14:00 of 2) [code = SHINGLES VACCINES (2 of 2)] Future Scheduled 2022-06-08 INFLUENZA VACCINE Method [facility] Test 15:14:00 [code = INFLUENZA VACCINE] Future Scheduled 2022-06-07 Hepatitis C screening [facility] Test 14:22:22 (procedure) [code = [id number]] Future Scheduled 2022-06-07 COLONOSCOPY SCREENING [facility] Test 14:22:22 [code = COLONOSCOPY SCREENING] Future Scheduled 2022-06-07 HEPATITIS B VACCINES Met [facility] Test 14:22:22 (1 of 3 - Risk 3-dose series) [code = HEPATITIS B VACCINES (1 of 3 - Risk 3-dose series)] Future Scheduled 2022-06-07 65+ [facility]OCOCCAL [facility] Test 14:22:22 VACCINE (2 - PCV) [code = 65+ PNEUMOCOCCAL VACCINE (2 - PCV)] Future Scheduled 2022-06-07 SHINGLES VACCINES (2 Met [facility] Test 14:22:22 of 2) [code = SHINGLES VACCINES (2 of 2)] Future Scheduled 2022-06-07 INFLUENZA VACCINE [facility] Test 14:22:22 [code = INFLUENZA VACCINE] Encounters Start End Encounter Admission Attending Care Care Encounter Source Date/Time Date/Time Type Type Clinicians Facility Department ID 2022-07-19 2022-07-19 Office Rory 1.2.840.1 [id number] [facility] 10:20:00 10:30:00 Visit Yolanda Hurt50.1.[address] 3.430.2.7 Hospit a .3.322677 l .8 2022-07-19 2022-07-19 Outpatient [facility] [id number] [address] [place] [address] 00:00:00 00:00:00 YOLANDA [address] 2022-07-19 2022-07-19 Travel 1.2.840.1 1.2.972.898 [id number] [id number] [facility] 00:00:00 00:00:[address] 3.430.2.7 0.2.7.3.698 spita .3.760723 084.8 l .8 2022-06-22 2022-06-22 Hospital Rory, 1.2.840.1 [id number] [facility] 07:12:00 16:55:00 Encounter Yolanda Hurt50.1.[address] 3.430.2.7 Hospit a .3.957305 l .8 2022-06-22 2022-06-22 Surgery Rory, 1.2.840.1 [id number] [facility] 09:15:00 11:20:00 Yolanda Romeo 70752.1.[address] 3.430.2.7 Hospit a .3.771006 l .8 2022-06-22 2022-06-22 [facility] 439 [id number] 124 [place] 00:00:00 00:00:00 YOLANDA [address] 2022-06-22 2022-06-22 Travel 1.2.840.1 1.2.818.507 5669 [id number] Methodi 00:00:00 00:00:[address] 3.430.2.7 0.2.7.3.698 Ho spita .3.132372 084.8 l .8 2022-06-21 2022-06-21 Documentat Provider, 1.2.840.1 [id number] 2 [id number] Methodi 00:00:00 00:00:00 ion Unknown 51151.1.[address] 3.430.2.7 Hospit a .3.287778 l .8 2022-06-16 2022-06-16 Travel 1.2.840.1 1.2.257.183 9245 [id number] [facility] 00:00:00 00:00:[address] 3.430.2.7 0.2.7.3.698 Ho spita .3.819190 084.8 l .8 2022-06-16 2022-06-16 Travel 1.2.840.1 1.2.478.568 7889 755654 [facility] 00:00:00 00:00:[address] 3.430.2.7 0.2.7.3.698 Ho spita .3.289390 084.8 l .8 2022-06-15 2022-06-15 Lab Rory, 1.2.840.1 [id number] 8942 Method[facility] 09:25:00 09:30:00 [address] Rome[address] 00765.1.[address] 3.430.2.7 Hospit a .3.062001 l .8 2022-06-15 2022-06-15 Lab Valadez, 1.2.840.1 [id number] 1623 Methodi 09:25:00 09:30:00 Y[address]349.[address] 3.430.2.7 Hospit a .3.048052 l .8 2022-06-15 2022-06-15 Orders Le, [facility] 1.2.840.1 [id number] 2099 [id number] Methodi 00:00:00 00:00:[address] 3.430.2.7 Hospit a .3.099878 l .8 2022-06-15 2022-06-15 Orders Le, [facility] 1.2.840.1 [id number] 2099 [id number] Methodi 00:00:00 00:00:[address] 3.430.2.7 Hospit a .3.489059 l .8 2022-06-14 2022-06-14 Refill Valadez, 1.2.840.1 [id number] 9309 Methodi 00:00:00 00:00:00 Yolanda [address]92.[address] 3.430.2.7 Hospit a .3.368546 l .8 2022-06-14 2022-06-14 Refill Valadez, 1.2.840.1 [id number] 9564 Method[facility] 00:00:00 00:00:00 Yolanda [address] 3.430.2.7 Hospit a .3.320658 l .8 2022-06-10 2022-06-10 Office Valadez, 1.2.840.1 [id number] 5870 Method[facility] 09:00:00 12:26:34 Visit Yolanda R. 05361.1.[address] 3.430.2.7 Hospit a .3.741630 l .8 2022-06-10 2022-06-10 Office Valadez, 1.2.840.1 [id number] 2843 Method[facility] 09:00:00 12:26:34 Visit Yolanda R. 74574.1.[address] 3.430.2.7 Hospit a .3.250307 l .8 2022-06-10 2022-06-10 Orders Shaji, 1.2.840.1 [id number] 794 [id number] Methodi 00:00:00 00:00:00 Only Nohemi 33079.1.[address] 3.430.2.7 Hospit a .3.020408 l .8 2022-06-10 2022-06-10 Orders Shaji, 1.2.840.1 [id number] 157 [id number] Methodi 00:00:00 00:00:00 Only Nohemi 07051.1.[address] 3.430.2.7 Hospit a .3.552974 l .8 2022-06-09 2022-06-09 Travel 1.2.840.1 1.2.275.873 2356 161099 Methodi 00:00:00 00:00:[address] 3.430.2.7 0.2.7.3.698 Ho spita .3.542057 084.8 l .8 2022-06-09 2022-06-09 Travel 1.2.840.1 1.2.186.965 7223 [id number] Methodi 00:00:00 00:00:[address] 3.430.2.7 0.2.7.3.698 Ho spita .3.849328 084.8 l .8 2022-06-07 2022-06-07 Telephone Rory, 1.2.840.1 [id number] 2099 [id number] Methodi 00:00:00 00:00:00 [address]neem [address] 3.430.2.7 Hospit a .3.268012 l .8 2022-06-07 2022-06-07 Telephone Rory, 1.2.840.1 [id number] 2099 [id number] Method[facility] 00:00:00 00:00:00 [address]em [address] 3.430.2.7 Hospit a .3.546022 l .8 2022-05-25 2022-05-26 [facility], 1.2.840.1 [id number] 21001 [id number] Methodi 11:41:00 10:21:00 Encounter Yolanda R. 35068.1.[address] 3.430.2.7 Hospit a .3.264789 l .8 2022-05-25 2022-05-26 [facility], 1.2.840.1 [id number] [id number] Methodi 11:41:00 10:21:00 Encounter Yolanda R. 82282.1.[address] 3.430.2.7 Hospit a .3.573401 l .8 2022-05-25 2022-05-25 Surgery [facility], 1.2.840.1 [id number] 3810 Methodi 14:45:00 15:50:00 Y[address] 3.430.2.7 Hospit a .3.789409 l .8 2022-05-25 2022-05-25 [facility], 1.2.840.1 [id number] 3080 Methodi 14:45:00 15:50:00 Yol[address]277.[address] 3.430.2.7 Hospit a .3.799522 l .8 2022-05-25 2022-05-25 Travel 1.2.840.1 1.2.760.042 1590 823124 Methodi 00:00:00 00:00:[address] 3.430.2.7 0.2.7.3.698 Ho spita .3.906862 084.8 l .8 2022-05-25 2022-05-25 Travel 1.2.840.1 1.2.279.909 9313 184090 [facility] 00:00:00 00:00:[address] 3.430.2.7 0.2.7.3.698 Ho spita .3.642518 084.8 l .8 2022-05-24 2022-05-24 Documentat Provider, 1.2.840.1 [id number] 2 [id number] Methodi 00:00:00 00:00:00 ion Unknown 55892.1.[address] 3.430.2.7 Hospit a .3.014957 l .8 2022-05-24 2022-05-24 Travel 1.2.840.1 1.2.761.824 5134 [id number] Methodi 00:00:00 00:00:[address] 3.430.2.7 0.2.7.3.698 Ho spita .3.476992 084.8 l .8 2022-05-24 2022-05-24 Documentat Provider, 1.2.840.1 [id number] 2 [id number] Methodi 00:00:00 00:00:00 ion Unknown 82976.1.[address] 3.430.2.7 Hospit a .3.063807 l .8 2022-05-24 2022-05-24 Travel 1.2.840.1 1.2.838.274 9513 680614 Methodi 00:00:00 00:00:[address] 3.430.2.7 0.2.7.3.698 Ho spita .3.536589 084.8 l .8 2022-05-10 2022-05-10 Office Rory, 1.2.840.1 [id number] 0891 Methodi 10:20:00 15:13:28 Visit Yolanda Romeo 17755.1.[address] 3.430.2.7 Hospit a .3.191178 l .8 2022-05-10 2022-05-10 Office Rory, 1.2.840.1 [id number] 0359 Methodi 10:20:00 15:13:28 Visit Yolanda RTasneem 58988.1.[address] 3.430.2.7 Hospit a .3.059319 l .8 2022-05-10 2022-05-10 Travel 1.2.840.1 1.2.591.623 7077 [id number] Methodi 00:00:00 00:00:[address] 3.430.2.7 0.2.7.3.698 Ho spita .3.201823 084.8 l .8 2022-05-10 2022-05-10 Travel 1.2.840.1 1.2.976.401 7722 320265 Methodi 00:00:00 00:00:[address] 3.430.2.7 0.2.7.3.698 Ho spita .3.566696 084.8 l .8 2022-05-03 2022-05-03 [facility] [id number] 691 [place] 00:00:00 00:00:00 YOLANDA [address] [facility] 2022-05-03 2022-05-03 Travel 1.2.840.1 1.2.509.857 4911 [id number] Methodi 00:00:00 00:00:[address] 3.430.2.7 0.2.7.3.698 Ho spita .3.578283 084.8 l .8 2022-05-03 2022-05-03 Travel 1.2.840.1 1.2.808.810 7250 402461 Methodi 00:00:00 00:00:[address] 3.430.2.7 0.2.7.3.698 Ho spita .3.849248 084.8 l .8 2021-11-09 2021-11-09 Office Rory, 1.2.840.1 [id number] 2003 Methodi 10:45:00 15:00:33 Visit Yolanda Romeo 34262.1.[address] 3.430.2.7 Hospit a .3.347397 l .8 2021-11-09 2021-11-09 Office Rory, 1.2.840.1 [id number] 8410 Methodi 10:45:00 15:00:33 Visit Yolanda Romeo 18238.1.[address] 3.430.2.7 Hospit a .3.894579 l .8 2021-11-09 2021-11-09 Travel 1.2.840.1 1.2.161.601 8114 817312 Methodi 00:00:00 00:00:[address] 3.430.2.7 0.2.7.3.698 Ho spita .3.013848 084.8 l .8 2021-11-09 2021-11-09 Travel 1.2.840.1 1.2.467.757 6351 257023 Methodi 00:00:00 00:00:[address] 3.430.2.7 0.2.7.3.698 Ho spita .3.801322 084.8 l .8 2021-05-11 2021-05-11 Outpatient RORY, [facility] [id number] 659 [place] 00:00:00 00:00:00 YOLANDA [address] 2021-04-23 2021-04-23 [facility] [id number] [place] 00:00:00 00:00:[address] ZIGGYKA [address] 2021-04-19 2021-04-19 [facility]patient [facility] [id number] [place] 00:00:00 00:00:00 NEEHBOBBIKA 683 [address] 2021-02-22 2021-02-22 Outpatient [facility] [id number] 03078 [place] 00:00:00 00:00:00 N[address]OBBIKA [address] 2020-11-03 2020-11-03 Outpatient RORY [facility] [id number] 366 [place] 00:00:00 00:00:00 YOLANDA [address] 2020-08-01 2020-08-01 Outpatient GIULIANA [facility] [id number] 725 [place] 00:00:00 00:00:[address] 2020-07-11 2020-07-11 Outpatient [facility] [id number] 683 [place] 00:00:00 00:00:[address] 2020-05-05 2020-05-05 Outpatient RORY, [facility] [id number] 251 [place] 00:00:00 00:00:00 YOLANDA [address] 2020-04-28 2020-04-28 Outpatient RORY [facility] [id number] 998 [place] 00:00:00 00:00:00 YOLANDA [address] 2020-04-28 2020-04-28 Outpatient RORY [facility] [id number] 998 [place] 00:00:00 00:00:00 YOLANDA [address] 2020-02-04 2020-02-04 Outpatient RORY, [facility] [id number] [place] 00:00:00 00:00:00 YOLANDA [address] Results Test Description Test Time Test Comments Results Result Comments Source ECG 12 lead 2022-06-23 12:17:44 Test Item Value Reference Range Interpretation Comme nts Ventricular rate (test code = 253) 63 Atrial rate (test code = 255) 63 TX interval (test code = 266) 162 QRSD interval (test code = 260) 94 QT interval (test code = 264) 402 QTC interval (test code = 265) 411 P axis 1 (test code = 267) 33 QRS axis 1 (test code = 268) -8 T wave axis (test code = 270) 7 EKG impression (test code = 273) Poor data quality-Normal sinus rhy thm-Normal ECG-In automated comparison with ECG of 25-MAY-2022 16:46,-No significant change was found- [facility] Pre/Post [id number] 12:15:35 Test Item Value Reference Range Interpretation Comments Ventricular rate (test 60 code = 253) Atrial rate (test code 60 = 255) TX interval (test code 180 = 266) QRSD interval (test 100 code = 260) QT interval (test code 422 = 264) QTC interval (test code 422 = 265) P axis 1 (test code = 32 267) QRS axis 1 (test code = -17 268) T wave axis (test code 10 = 270) EKG impression (test Normal sinus code = 273) rhythm-Normal ECG-In automated comparison with ECG of 22-JUN-2022 08:37,-No significant change was found- [facility] [id number] 17:19:00 Test Item Value Reference Range Interpretation Comments POC glucose (test code = 102 mg/dL 65-99 H Ope rator Name: [id number]) Thomas Chenice ID: [id number] able : No Action Nee ded Lab Interpretation (test Abnormal code = 99130-0) [id number] 16:12:00 Test Item Value Reference Range Interpretation Comments Activated clotting time 394 See_Comment H Oper ator Name: (test code = 5298) Alvaro Mir layaaDejasone ID: [id number] [Automated mess age] The system [employer] generated this result transmitted ref erence range: 96 - 152 sec. The reference r lisa was not used to interpret this result as normal/abnor mal. Lab Interpretation (test Abnormal code = 19800-4) [facility] Pre/Post Op (in AM)2022-05-26 15:26:35 Test Item Value Reference Range Interpretation Comments Ventricular rate (test code = 253) Atrial rate (test code = 255) TX interval (test code = 266) QRSD interval (test code = 260) QT interval (test code = 264) QTC interval (test code = 265) P axis 1 (test code = 267) QRS axis 1 (test code = 268) T wave axis (test code = 270) EKG impression (test code Sinus = 273) bradycardia-Electron ically Signed By Julio Capellan MD ([id number]) on 05/26/2022 9:26:33 AM [facility] Pre/Post Op (in AM)2022-05-26 15:26:35 Test Item Value Reference Range Interpretation Comments Ventricular rate (test code = 253) Atrial rate (test code = 255) TX interval (test code = 266) QRSD interval (test code = 260) QT interval (test code = 264) QTC interval (test code = 265) P axis 1 (test code = 267) QRS axis 1 (test code = 268) T wave axis (test code = 270) EKG impression (test code Sinus = 273) bradycardia-Electron ically Signed By Julio Capellan MD ([id number]) on 05/26/2022 9:26:33 AM [facility] [facility] Pre/Post Op (in AM)2022-05-26 15:26:35 Test Item Value Reference Range Interpretation Comments Ventricular rate (test code = 253) Atrial rate (test code = 255) TX interval (test code = 266) QRSD interval (test code = 260) QT interval (test code = 264) QTC interval (test code = 265) P axis 1 (test code = 267) QRS axis 1 (test code = 268) T wave axis (test code = 270) EKG impression (test code Sinus = 273) bradycardia-Electron ically Signed By Julio Capellan MD ([id number]) on 05/26/2022 9:26:33 AM [facility] Pre/Post Op (in AM)2022-05-26 15:26:35 Test Item Value Reference Range Interpretation Comments Ventricular rate (test code = 253) Atrial rate (test code = 255) TX interval (test code = 266) QRSD interval (test code = 260) QT interval (test code = 264) QTC interval (test code = 265) P axis 1 (test code = 267) QRS axis 1 (test code = 268) T wave axis (test code = 270) EKG impression (test code Sinus = 273) bradycardia-Electron ically Signed By Julio Capellan MD ([id number]) on 05/26/2022 9:26:33 AM [facility] Pre/Post Op (in AM)2022-05-26 15:26:35 Test Item Value Reference Range Interpretation Comments Ventricular rate (test code = 253) Atrial rate (test code = 255) TX interval (test code = 266) QRSD interval (test code = 260) QT interval (test code = 264) QTC interval (test code = 265) P axis 1 (test code = 267) QRS axis 1 (test code = 268) T wave axis (test code = 270) EKG impression (test code Sinus = 273) bradycardia-Electron ically Signed By Julio Capellan MD ([id number]) on 05/26/2022 9:26:33 AM [facility] [id number] 15:25:00 Test Item Value Reference Range Interpretation Comments POC glucose (test code 126 mg/dL 65-99 H Opera tor Name: Srinivas = 11967-8) Liatelmaice I D: [id number] able: [facility] Notified [employer] manager Interpretation Abnormal (test code = 88799-7) [facility] [id number] 15:25:00 Test Item Value Reference Range Interpretation Comments POC glucose (test code 126 mg/dL 65-99 H Opera tor Name: Srinivas = 64622-7) Tifice I D: [id number] able: [facility] Notified [employer] manager Interpretation Abnormal (test code = 58664-9) [facility]2022-12-22 15:25:00 Test Item Value Reference Range Interpretation Comments POC glucose (test code 126 mg/dL 65-99 H Opera tor Name: Srinivas = 47249-7) Liaice I D: [id number] able: [facility] Notified [employer] manager Interpretation Abnormal (test code = 17221-5) [facility]2022-12-22 15:25:00 Test Item Value Reference Range Interpretation Comments POC glucose (test code 126 mg/dL 65-99 H Opera tor Name: Srinivas = 66831-0) ice I D: [id number] able: [facility] Notified [employer] manager Interpretation Abnormal (test code = 51292-5) [facility]2022-12-22 15:25:00 Test Item Value Reference Range Interpretation Comments POC glucose (test code 126 mg/dL 65-99 H Opera tor Name: Srinivas = 19774-8) Tifice I D: [id number] able: [facility] Notified [employer] manager Interpretation Abnormal (test code = 84842-9) [facility] [id number] 12:49:00 Test Item Value Reference Range Interpretation Comments Activated clotting time See_Comment H Oper ator Name: Pack (test code = 5298) Shae ice ID: [id number] [Autom ated message] The sy stem which generated this result transmit tristin reference range : 96 - 152 sec. The reference range was not used to int erpret this result as normal/abnormal . Lab Interpretation (test Abnormal code = 57091-9) [facility] [id number] 12:49:00 Test Item Value Reference Range Interpretation Comments Activated clotting time See_Comment H Oper ator Name: Pack (test code = 5298) [employer] ice ID: [id number] [Autom ated message] The sy stem which generated this result transmit tristin reference range : 96 - 152 sec. The reference range was not used to int erpret this result as normal/abnormal . Lab Interpretation (test Abnormal code = 93360-5) [facility] [id number] 12:49:00 Test Item Value Reference Range Interpretation Comments Activated clotting time See_Comment H Oper ator Name: Pack (test code = 5298) [employer] ice ID: [id number] [Autom ated message] The sy stem which generated this result transmit tristin reference range : 96 - 152 sec. The reference range was not used to int erpret this result as normal/abnormal . Lab Interpretation (test Abnormal code = 76626-4) [facility] [id number] 12:49:00 Test Item Value Reference Range Interpretation Comments Activated clotting time See_Comment H Oper ator Name: Pack (test code = 5298) [employer] ice ID: [id number] [Autom ated message] The sy stem which generated this result transmit tristin reference range : 96 - 152 sec. The reference range was not used to int erpret this result as normal/abnormal . Lab Interpretation (test Abnormal code = 26474-9) [facility] [id number] 12:49:00 Test Item Value Reference Range Interpretation Comments Activated clotting time See_Comment H Oper ator Name: Pack (test code = 5298) [employer] ice ID: [id number] [Autom ated message] The sy stem which generated this result transmit tristin reference range : 96 - 152 sec. The reference range was not used to int erpret this result as normal/abnormal . Lab Interpretation (test Abnormal code = 35753-0) [facility] [id number] 09:49:00 Test Item Value Reference Range Interpretation Comments Glucose (test code = 128 mg/dL 65-99 H Fastin g 2345-7) reference interval For someone without known diabetes, a glucosevalue >1 25 mg/dL indicates that they may havediabetes an d this should be confirmed with afollow-up test . BUN (test code = 17 mg/dL 12-27 3094-0) Creatinine (test 0.96 mg/dL 0.70-1.35 code = 2160-0) eGFR (test code = See_Comment The eGFR i s based 8257) on the CKD-EPI 2020 equation. To calculate the n ew eGFR from a previous Creatinine or Cystatin Cresul t, go to https://www.kid ne y.org/professio na ls/kdoqi/gfr%5F ca lculator [Automated message] The system which generated this result transmitted reference range : > OR = 60 mL/min/1.73m2. The reference range was not used to interpr et this result as normal/abnormal . BUN/creatinine ratio NOT APPLICABLE See_Comment [Aut omated (test code = 3097-3) message ] The system which generated this result transmitted reference range : 6 - 22 (calc). The reference range was not used to interpr et this result as normal/abnormal . Sodium (test code = 138 mmol/L 132-325 9195-2) Potassium (test code 3.9 mmol/L 3.5-5.3 = 2823-3) Chloride (test code 100 mmol/L 98-110 = 2075-0) CO2 (test code = 28 mmol/L -32 2027-9) Calcium (test code = 9.8 mg/dL 8.6-10.3 50449-3) Protein (test code = 7.0 g/dL 6.1-8.1 2885-2) Albumin, S (test 4.5 g/dL 3.6-5.1 code = 1751-7) Globulin, total See_Comment [Automated (test code = message] The 86952-8) system which generated this result transmitted reference range : 1.9 - 3.7 g/dL (calc). The reference range was not used to interpret this result as normal/abnormal . Albumin/globulin See_Comment [Automated ratio (test code = message] The 1759-0) system which generated this result transmitted reference range : 1.0 - 2.5 (calc ). The reference range was not used to interpr et this result as normal/abnormal . Total bilirubin 0.7 mg/dL 0.2-1.2 (test code = 1975-2) Alkaline phosphatase 54 U/L 35-144 (test code = 6768-6) AST (test code = 17 U/L 10-35 1920-8) ALT (test code = 22 U/L 9-46 1742-6) SUBHASH (test code = FASTING:YESAN SUBHASH) UPDATE OR CORRECTION HAS BEEN MADE TO NAME FASTING: YES RAC (test code = Performing RAC) Organization Information: Site ID: [facility] Address: [address] [place] [id number] Director: Huber Cruz Lab Interpretation Abnormal (test code = 20237-6) [facility] with [id number] 09:49:00 Test Item Value Reference Range Interpretation Comments INR (test code = Reference R lisa 6301-6) 0.9-1.1Moderate -i ntensity Warfar in Therapy 2.0-3.0Higher-i nt ensity Warfarin Therapy 3.0-4.0 Prothrombin time See_Comment For additio nal (test code = information, 5902-2) please refer tohttp://educat io n.[employer]/faq/FAQ10 4( This link is being provided for informational/e du cational purpos es only.) [Automat ed message] The system which generated this result transmitted reference range : 9.0 - 11.5 sec. The reference range was not used to interpr et this result as normal/abnormal . SUBHASH (test code = FASTING:YESAN SUBHASH) UPDATE OR CORRECTION HAS BEEN MADE TO NAME FASTING: YES RAC (test code = Performing RAC) Organization Information: Site ID: [facility] Address: [address] [place] [id number] Director: Huber Cruz [facility] [id number] 09:49:00 Test Item Value Reference Range Interpretation Comments Glucose (test code = 128 mg/dL 65-99 H Fastin g 2345-7) reference interval For someone without known diabetes, a glucosevalue >1 25 mg/dL indicates that they may havediabetes an d this should be confirmed with afollow-up test . BUN (test code = 17 mg/dL 12-27 3094-0) Creatinine (test 0.96 mg/dL 0.70-1.35 code = 2160-0) eGFR (test code = See_Comment The eGFR i s based 8257) on the CKD-EPI 2020 equation. To calculate the n ew eGFR from a previous Creatinine or Cystatin Cresul t, go to https://www.kid ne y.org/profshalom anderson/kdoqi/gfr%5F ca lculator [Automated message] The system which generated this result transmitted reference range : > OR = 60 mL/min/1.73m2. The reference range was not used to interpr et this result as normal/abnormal . BUN/creatinine ratio NOT APPLICABLE See_Comment [Aut omated (test code = 3097-3) message ] The system which generated this result transmitted reference range : 6 - 22 (calc). The reference range was not used to interpr et this result as normal/abnormal . Sodium (test code = 138 mmol/L 691-922 8348-2) Potassium (test code 3.9 mmol/L 3.5-5.3 = 2823-3) Chloride (test code 100 mmol/L 98-110 = 2075-0) CO2 (test code = 28 mmol/L 20-32 2027-9) Calcium (test code = 9.8 mg/dL 8.6-10.3 79883-7) Protein (test code = 7.0 g/dL 6.1-8.1 2885-2) Albumin, S (test 4.5 g/dL 3.6-5.1 code = 1751-7) Globulin, total See_Comment [Automated (test code = message] The 99398-3) system which generated this result transmitted reference range : 1.9 - 3.7 g/dL (calc). The reference range was not used to interpret this result as normal/abnormal . Albumin/globulin See_Comment [Automated ratio (test code = message] The 5210) system which generated this result transmitted reference range : 1.0 - 2.5 (calc ). The reference range was not used to interpr et this result as normal/abnormal . Total bilirubin 0.7 mg/dL 0.2-1.2 (test code = 1974-2) Alkaline phosphatase 54 U/L 35-144 (test code = 6768-6) AST (test code = 17 U/L 10-35 1920-8) ALT (test code = 22 U/L 9-46 1742-6) SUBHASH (test code = FASTING:YESAN SUBHASH) UPDATE OR CORRECTION HAS BEEN MADE TO NAME FASTING: YES RAC (test code = Performing RAC) Organization Information: Site ID: [facility] Address: [address] [place] [phone] Director: Huber Cruz Lab Interpretation Abnormal (test code = 46266-6) [facility] [id number] 09:49:00 Test Item Value Reference Range Interpretation Comments INR (test code = Reference R lisa 6301-6) 0.9-1.1Moderate -i ntensity Warfar in Therapy 2.0-3.0Higher-i nt ensity Warfarin Therapy 3.0-4.0 Prothrombin time See_Comment For additio nal (test code = information, 5902-2) please refer tohttp://educat mobifriends n.[employer]/faq/FAQ10 4( This link is being provided for informational/e du cational purpos es only.) [Automat ed message] The system which generated this result transmitted reference range : 9.0 - 11.5 sec. The reference range was not used to interpr et this result as normal/abnormal . SUBHASH (test code = FASTING:YESAN SUBHASH) UPDATE OR CORRECTION HAS BEEN MADE TO NAME FASTING: YES RAC (test code = Performing RAC) Organization Information: Site ID: [facility] Address: [address] [place] [id number] Director: Huber Cruz [facility] [id number] 09:49:00 Test Item Value Reference Range Interpretation Comments Glucose (test code = 128 mg/dL 65-99 H Fastin g 1375-7) reference interval For someone without known diabetes, a glucosevalue >1 25 mg/dL indicates that they may havediabetes an d this should be confirmed with afollow-up test . BUN (test code = 17 mg/dL 12-274-0) Creatinine (test 0.96 mg/dL 0.70-1.35 code = 2160-0) eGFR (test code = See_Comment The eGFR i s based 8257) on the CKD-EPI 2020 equation. To calculate the n ew eGFR from a previous Creatinine or Cystatin Cresul t, go to https://www.kid ne y.org/profshalom anderson/kdoqi/gfr%5F ca lculator [Automated message] The system which generated this result transmitted reference range : > OR = 60 mL/min/1.73m2. The reference range was not used to interpr et this result as normal/abnormal . BUN/creatinine ratio NOT APPLICABLE See_Comment [Aut omated (test code = 3097-3) message ] The system which generated this result transmitted reference range : 6 - 22 (calc). The reference range was not used to interpr et this result as normal/abnormal . Sodium (test code = 138 mmol/L 585-163 1483-2) Potassium (test code 3.9 mmol/L 3.5-5.3 = 2823-3) Chloride (test code 100 mmol/L 98-110 = 2075-0) CO2 (test code = 28 mmol/L 2028-02) Calcium (test code = 9.8 mg/dL 8.6-10.3 71153-1) Protein (test code = 7.0 g/dL 6.1-8.1 2885-2) Albumin, S (test 4.5 g/dL 3.6-5.1 code = 1751-7) Globulin, total See_Comment [Automated (test code = message] The 83623-5) system which generated this result transmitted reference range : 1.9 - 3.7 g/dL (calc). The reference range was not used to interpret this result as normal/abnormal . Albumin/globulin See_Comment [Automated ratio (test code = message] The ) system which generated this result transmitted reference range : 1.0 - 2.5 (calc ). The reference range was not used to interpr et this result as normal/abnormal . Total bilirubin 0.7 mg/dL 0.2-1.2 (test code = 1974-2) Alkaline phosphatase 54 U/L 35-144 (test code = 6768-6) AST (test code = 17 U/L 10-35 1920-8) ALT (test code = 22 U/L 9-46 1742-6) SUBHASH (test code = FASTING:YESAN SUBHASH) UPDATE OR CORRECTION HAS BEEN MADE TO NAME FASTING: YES RAC (test code = Performing RAC) Organization Information: Site ID: [facility] Address: [address] [place] [phone] Director: Huber Cruz Lab Interpretation Abnormal (test code = 20132-6) [facility] [id number] 09:49:00 Test Item Value Reference Range Interpretation Comments INR (test code = Reference R lisa 6301-6) 0.9-1.1Moderate -i ntensity Warfar in Therapy 2.0-3.0Higher-i nt ensity Warfarin Therapy 3.0-4.0 Prothrombin time See_Comment For additio nal (test code = information, 5902-2) please refer tohttp://educat io n.[employer]/faq/FAQ10 4( This link is being provided for informational/e du cational purpos es only.) [Automat ed message] The system which generated this result transmitted reference range : 9.0 - 11.5 sec. The reference range was not used to interpr et this result as normal/abnormal . SUBHASH (test code = FASTING:YESAN SUBHASH) UPDATE OR CORRECTION HAS BEEN MADE TO NAME FASTING: YES RAC (test code = Performing RAC) Organization Information: Site ID: [facility] Address: [address] [place] [phone] Director: Hub[facility] Cruz [facility] RNA [Presence] in Respiratory specimen by DORA with probe [id number] 19:43:48 Test Item Value Reference Range Interpretation Comments SARS-CoV-2 (COVID-19) RNA Not detected Not-Detected [Presence] in Respiratory specimen by DORA with probe detection (test code = 67783-4) Whether patient is employed in a healthcare setting (test code = 16385-6) Whether the patient has symptoms related to condition of interest (test code = 36046-5) Patient was hospitalized because of this condition (test code = 61915-0) Whether the patient was admitted to intensive care unit (ICU) for condition of interest (test code = 22332-3) Whether patient resides in a congregate care setting (test code = 65699-9) JUANY SALVADOR
[2022-08-05 13:27] LABS: Protime INR 1.05
--- NOTE | 2022-08-05 13:35 | RAD REPORT ---
EXAM DESCRIPTION: Michel Single View08/05/2022 1:27 pm CLINICAL HISTORY: Chest pain COMPARISON: 2010 FINDINGS: The lungs appear clear of acute infiltrate. The heart is normal size IMPRESSION: No acute abnormalities displayed
[2022-08-05 13:44] LABS: Potassium 3.8 mmol/L (3.5-5.1)
[2022-08-05 13:45] LABS: Troponin High Sensitivity 3.3 pg/mL (<58.9)
[2022-08-05 14:03] LABS: Absolute Lymphocytes (CBC) 0.9 K/uL (0.7-4.9); Lymphocytes % 13.5 % (15.3-44.8); MCV 87.2 fL (80-100); MPV 8.8 fL (7.6-11.3); RBC Red Blood Cell Count 5.04 M/uL (4.33-5.43)
--- NOTE | 2022-08-05 14:41 | EDPHYS ---
Physician Documentation [facility] Name: Amanuel Connolly Jr Age: 67 yrs Sex: Male : 1955 Arrival Date: 08/05/2022 Time: 12:48 Bed 10 Private MD: ED Physician Mario Plummer HPI: 08/05 13:05 This 67 yrs old Male presents to ER via Ambulatory with complaints of Chest Pain. jh7 13:05 Onset: The symptoms/episode began/occurred 4 day(s) ago. Associated signs and symptoms: jh7 Pertinent positives: cough, Pertinent negatives: fever, shortness of breath, sore throat, vomiting, wheezing. Patient reports chest pain since Monday. Reports that he had a bad chest cold 2 weeks ago and has been on cefdinir for the past 10 days. Reports continued dry cough. Reports that chest pain is reproducible and worse with inspiration and movement. Reports that it radiates to his left shoulder and back and is sharp. Reports that his financial institution branch manager is Dr. Hidalgo at [facility] and his PCP is Dr. Irene. Reports that he had 2 stents placed in May and has a total of 14 stents. States that this does not feel like heart attack pain, but with his history, he wanted to get it checked out.. Historical: - Allergies: 13:08 No Known Allergies; ld1 - Home Meds: 13:08 clopidogrel 75 mg oral tab 1 tab once daily [Active]; ld1 - PMHx: 13:08 Diabetes mellitus; Hypertensive disorder; Hypercholesterolemia; ld1 - PSHx: 13:08 Heart stent; Cholecystectomy; ld1 - Immunization history:: Adult Immunizations up to date, Client reports receiving the 2nd dose of the Covid vaccine. - Social history:: Smoking status: Patient denies any tobacco usage or history of. Patient/guardian denies using alcohol. ROS: 13:05 Constitutional: Negative for fever, chills, and weight loss, Eyes: Negative for injury, jh7 pain, redness, and discharge, ENT: Negative for injury, pain, and discharge, Neck: Negative for injury, pain, and swelling, Abdomen/GI: Negative for abdominal pain, nausea, vomiting, diarrhea, and constipation, Back: Negative for injury and pain, MS/Extremity: Negative for injury and deformity, Skin: Negative for injury, rash, and discoloration, Neuro: Negative for headache, weakness, numbness, tingling, and seizure. 13:05 Cardiovascular: Positive for chest pain, Negative for orthopnea, palpitations. 13:05 Respiratory: Positive for cough, Negative for shortness of breath, wheezing. 13:05 All other systems are negative. Exam: 13:05 Constitutional: This is a well developed, well nourished patient who is awake, alert, jh7 and in no acute distress. Head/Face: Normocephalic, atraumatic. Eyes: Pupils equal round and reactive to light, extra-ocular motions intact. Lids and lashes normal. Conjunctiva and sclera are non-icteric and not injected. Cornea within normal limits. Periorbital areas with no swelling, redness, or edema. ENT: Nares patent. No nasal discharge, no septal abnormalities noted. Tympanic membranes are normal and external auditory canals are clear. Oropharynx with no redness, swelling, or masses, exudates, or evidence of obstruction, uvula midline. Mucous membranes moist. Cardiovascular: Regular rate and rhythm with a normal S1 and S2. No gallops, murmurs, or rubs. Normal PMI, no JVD. No pulse deficits. Respiratory: Lungs have equal breath sounds bilaterally, clear to auscultation and percussion. No rales, rhonchi or wheezes noted. No increased work of breathing, no retractions or nasal flaring. Back: No spinal tenderness. No costovertebral tenderness. Full range of motion. Skin: Warm, dry with normal turgor. Normal color with no rashes, no lesions, and no evidence of cellulitis. MS/ Extremity: Pulses equal, no cyanosis. Neurovascular intact. Full, normal range of motion. Neuro: Awake and alert, GCS 15, oriented to person, place, time, and situation. Motor strength 5/5 in all extremities. Sensory grossly intact. Normal gait. Vital Signs: 13:07 BP 139 / 79; Pulse 93; Resp 18; Temp 98.3(O); Pulse Ox 97% on R/A; Weight 97.52 kg; ld1 Height 5 ft. 10 in. (177.80 cm); Pain 3/10; 13:28 BP 117 / 74; Pulse 85; Resp 17; Temp 99.3(O); Pulse Ox 95% on R/A; tm3 14:42 BP 115 / 66; Pulse 80; Resp 16; Pulse Ox 95% on R/A; tm3 13:07 Body Mass Index 30.85 (97.52 kg, 177.80 cm) 1 MDM: 12:50 Patient medically screened. 7 14:50 Differential diagnosis: viral Infection, bacterial infection, URI, bronchitis, jh7 pneumonia Acute IN, costochondritis, pleurisy. Data reviewed: vital signs, nurses notes, lab test result(s), EKG, radiologic studies, plain films. Consideration of Admission/Observation Escalation of care including admission/observation considered. I considered the following discharge prescriptions or medication management in the emergency department Medications were administered in the Emergency Department. See MAR. Historians other than the Patient: Spouse/Significant Other: . Care significantly affected by the following chronic conditions: Diabetes, Hypertension, Multiple cardiac stents. Scoring Tools HEART Score: History: Age: Risk Factors: Total Score = 6. Counseling: I had a detailed discussion with the patient and/or guardian regarding: the historical points, exam findings, and any diagnostic results supporting the discharge/admit diagnosis, to return to the emergency department if symptoms worsen or persist or if there are any questions or concerns that arise at home. Special discussion: Informed the patient that although his history is concerning, his chest pain is reproducible, tender to palpation of the costochondral junction, and his labs and EKG are normal. He stated that he did not think it was a heart attack because with his heart attack he had crushing chest pain and dizziness. He was advised to still follow-up with his financial institution branch manager, and if his symptoms continued or he develops any new concerning symptoms, he should return to the ER for further eval.. 08/05 13:01 Order name: Basic Metabolic Panel ld08/05 13:01 Order name: CBC with Diff 08/05 13:01 Order name: Troponin HS 08/05 13:01 Order name: XRAY Chest (1 view) 08/05 13:01 Order name: EKG; Complete Time: 13:01 08/05 13:01 Order name: Cardiac monitoring; Complete Time: 13:09 08/05 13:01 Order name: EKG - Nurse/Tech; Complete Time: 13:09 08/05 13:01 Order name: IV Saline Lock; Complete Time: 13:33 ld1 08/05 13:01 Order name: Labs collected and sent; Complete Time: 13:33 ld1 08/05 13:01 Order name: O2 Per Protocol; Complete Time: 13:09 ld1 08/05 13:01 Order name: O2 Sat Monitoring; Complete Time: 13:09 ld1 08/05 13:01 Order name: PROBNP [facility] 08/05 13:01 Order name: PT-INR [facility] 08/05 13:27 Order name: Protime (+INR); Complete Time: 13:48 EDMS 08/05 13:35 Order name: Labs - recollect needed: recollect cbc per josselin/ hemolyzed; Complete Time: eb 13:53 08/05 13:36 Order name: RAD; Complete Time: 13:48 EDMS 08/05 13:45 Order name: Basic Metabolic Panel; Complete Time: 13:48 EDMS 08/05 13:45 Order name: Troponin High Sensitivity; Complete Time: 13:48 EDMS 08/05 13:45 Order name: NT PRO-BNP; Complete Time: 13:48 EDMS 08/05 14:27 Order name: CBC with Automated Diff; Complete Time: 14:30 EDMS EC:06 Rate is 87 beats/min. Rhythm is regular. QRS [place] is Normal. [place] interval is normal at jh7 150 msec. QRS interval is normal at 92 msec. QT interval is normal at 368 msec. No Q waves. T waves are Normal. No ST changes noted. Clinical impression: Normal ECG. Administered Medications: 14:45 Drug: Ketorolac 30 mg Route: IVP; Site: right forearm; mb9 14:45 Follow up: Response: No adverse reaction mb9 Disposition: 19:05 Co-signature as Attending Physician, Mario MOLINA was immediately available on-site ms3 in the Emergency Department for consultation in the care of the patient. Disposition Summary: 08/05/22 14:40 Discharge Ordered Location: Home [facility] Problem: [facility] Symptoms: have improved [facility] Condition: Stable [facility] Diagnosis - Costochondritis 7 - Chest pain on breathing [facility] Followup: [facility] - With: Private Physician - When: 2 - 3 days - Reason: Recheck today's complaints Discharge Instructions: - Discharge Summary Sheet [facility] - Nonspecific Chest Pain, Adult jh7 - Costochondritis 7 Forms: - Medication Reconciliation Form 7 - Thank You Letter [facility] Prescriptions: - Zanaflex 4 mg Oral Tablet - take 1 tablet by ORAL route every 8 hours As needed; 20 tablet; Refills: 0, [facility] Product Selection Permitted - Tessalon Perles 100 mg Oral Capsule - take 1 capsule by ORAL route every 8 hours As needed; 15 capsule; Refills: 0, [facility] Product Selection Permitted Signatures: Dispatcher [employer] EDMelly Candelario Marcus, DO DO ms3 Patricia Whitaker, RN RN ld1 Saumya Herrera, DEMAND PLANNING ANALYST DEMAND PLANNING ANALYST jh7 Annabel Stephens RN RN mb9
--- NOTE | 2022-08-05 14:41 | ER ---
Nurse's Notes [facility] Name: Amanuel Connolly Jr Age: 67 yrs Sex: Male : 1955 Arrival Date: 08/05/2022 Time: 12:48 Bed 10 Private MD: Diagnosis: Costochondritis;Chest pain on breathing Presentation: 08/05 13:07 Chief complaint: Patient states: Chest pain 2-3 days, sore \\T\\ constant. "Sometimes ld1 radiates to my left shoulder \\T\\ upper back.". Coronavirus screen: At this time, the client does not indicate any symptoms associated with coronavirus-19. Ebola Screen: No symptoms or risks identified at this time. Initial Sepsis Screen: Does the patient meet any 2 criteria? No. Patient's initial sepsis screen is negative. Does the patient have a suspected source of infection? No. Patient's initial sepsis screen is negative. Risk Assessment: Do you want to hurt yourself or someone else? Patient reports no desire to harm self or others. Onset of symptoms was August 05, 2022. 13:07 Method Of Arrival: Ambulatory ld1 13:07 Acuity: NI 3 ld1 Triage Assessment: 13:08 General: Appears in no apparent distress. comfortable, Behavior is calm, cooperative, ld1 appropriate for age. Pain: Complains of pain in chest Pain radiates to back and left arm Pain currently is 3 out of 10 on a pain scale. at worst was 10 out of 10 on a pain scale. Quality of pain is described as sharp, shooting, throbbing. EENT: No signs and/or symptoms were reported regarding the EENT system. Neuro: Level of Consciousness is awake, alert, obeys commands, Oriented to person, place, time, situation. Cardiovascular: Capillary refill < 3 seconds Patient's skin is warm and dry. Rhythm is sinus rhythm. Respiratory: Airway is patent Respiratory effort is even, unlabored. Historical: - Allergies: 13:08 No Known Allergies; ld1 - Home Meds: 13:08 clopidogrel 75 mg oral tab 1 tab once daily [Active]; ld1 - PMHx: 13:08 Diabetes mellitus; Hypertensive disorder; Hypercholesterolemia; ld1 - PSHx: 13:08 Heart stent; Cholecystectomy; ld1 - Immunization history:: Adult Immunizations up to date, Client reports receiving the 2nd dose of the Covid vaccine. - Social history:: Smoking status: Patient denies any tobacco usage or history of. Patient/guardian denies using alcohol. Screenin:13 [facility] ED Fall Risk Assessment (Adult) History of falling in the last 3 months, mb9 including since admission No falls in past 3 months (0 pts) Confusion or Disorientation No (0 pts) Intoxicated or Sedated No (0 pts) Impaired Gait No (0 pts) Mobility Assist Device Used No (0 pt) Altered Elimination No (0 pt) Score/Fall Risk Level 0 - 2 = Low Risk Oriented to surroundings, Maintained a safe environment, Educated pt \\T\\ family on fall prevention, incl call for assistance when getting out of bed. Abuse screen: Denies threats or abuse. Nutritional screening: No deficits noted. Tuberculosis screening: No symptoms or risk factors identified. Assessment: 13:35 General: Appears in no apparent distress. Behavior is anxious. Pain: Complains of pain mb9 in chest Pain radiates to left arm and back Pain currently is 6 out of 10 on a pain scale. Quality of pain is described as pressure, Pain began Monday Is intermittent. Neuro: Level of Consciousness is awake, alert, obeys commands, Oriented to person, place, time, situation, Appropriate for age. Cardiovascular: Heart tones S1 S2 present Capillary refill < 3 seconds is brisk Pulses are all present. Rhythm is regular. Respiratory: Airway is patent Respiratory effort is even, unlabored, Respiratory pattern is regular, symmetrical, Breath sounds are clear bilaterally. GI: No signs and/or symptoms were reported involving the gastrointestinal system. : No signs and/or symptoms were reported regarding the genitourinary system. Derm: Skin is pink, warm \\T\\ dry. Musculoskeletal: Range of motion: intact in all extremities. 14:56 Reassessment: No changes from previously documented assessment. Patient and/or family mb9 updated on plan of care and expected duration. Pain level reassessed. Patient is alert, oriented x 3, equal unlabored respirations, skin warm/dry/pink. Patient states feeling better. Patient states symptoms have improved. Vital Signs: 13:07 BP 139 / 79; Pulse 93; Resp 18; Temp 98.3(O); Pulse Ox 97% on R/A; Weight 97.52 kg; ld1 Height 5 ft. 10 in. (177.80 cm); Pain 3/10; 13:28 BP 117 / 74; Pulse 85; Resp 17; Temp 99.3(O); Pulse Ox 95% on R/A; tm3 14:42 BP 115 / 66; Pulse 80; Resp 16; Pulse Ox 95% on R/A; tm3 13:07 Body Mass Index 30.85 (97.52 kg, 177.80 cm) ld1 ED Course: 12:48 Patient arrived in ED. mr 12:50 Saumya Herrera, PUNEET is PHCP. jh7 12:50 Mario Plummer DO is Attending Physician. jh7 13:08 Triage completed. ld1 13:08 Arm band placed on right wrist. EKG completed in triage. Results shown to MD. ld1 13:08 Placed in gown. Bed in low position. Call light in reach. Side rails up X 1. Client mb9 placed on continuous cardiac and pulse oximetry monitoring. NIBP monitoring applied. panel monitor on. 13:20 Initial lab(s) drawn, by me, sent to lab. EKG done, by ED staff. tm3 13:21 Missed attempt(s): 22 gauge in left antecubital area. tm3 13:33 Annabel Stephens, RN is Primary Nurse. mb9 13:33 PT-INR Sent. mb9 13:33 PROBNP Sent. mb9 13:53 Inserted saline lock: 22 gauge in left forearm, using aseptic technique. Blood mb9 collected. 14:14 No provider procedures requiring assistance completed. mb9 14:57 IV discontinued, intact, bleeding controlled, No redness/swelling at site. Pressure mb9 dressing applied. Administered Medications: 14:45 Drug: Ketorolac 30 mg Route: IVP; Site: right forearm; mb9 14:45 Follow up: Response: No adverse reaction mb9 Medication: 14:14 VIS not applicable for this client. mb9 Outcome: 14:40 Discharge ordered by . jh7 14:57 Discharged to home ambulatory. mb9 14:57 Condition: stable 14:57 Discharge instructions given to patient, Instructed on discharge instructions, follow up and referral plans. Demonstrated understanding of instructions, follow-up care, medications, Prescriptions given X 2. 14:57 Patient left the ED. mb9 Signatures: Marcus Bernstein tm3 Annabel Hackett Lauren, RN RN ld1 Saumya Herrera, [employer] jh7 Annabel Stephens, RN RN mb9
[2022-08-05] MEDS ORDERED: KETOROLAC 30 MG/ML INJ ONE (14:46)
[2022-08-05 15:29] VITALS: BP 115/66; O2SAT 95
[2022-08-05 15:30] VITALS: TEMP 99.3
--- NOTE | 2022-08-08 16:48 | EKG ---
Test Date: 2022-08-05 Test Time: 13:06:47 Graduate Intern: JEANINE MEASUREMENT RESULTS: Intervals: Rate: 87 GA: 150 QRSD: 92 QT: 368 QTc: 442 [place]: P: 49 GA: 150 QRS: 30 T: -22 INTERPRETIVE STATEMENTS: Normal sinus rhythm Normal ECG Compared to ECG 12/08/2006 06:24:35 Sinus bradycardia no longer present Electronically Signed On 08-08-22 16:40:13 [employer]READ D[employer] M[employer]ER by David Monzon
== END 2022-08-05 14:57 | disposition home or self-care (01) ==
LOC: ER 12:45
DX: M94.0 Chondrocostal junction syndrome [Tietze] (principal); I10 Essential (primary) hypertension; E11.9 Type 2 diabetes mellitus without complications; Z95.818 Presence of other cardiac implants and grafts
CPT/HCPCS: 36415; 71045; 80048; 83880; 84484; 85025; 85610; 93005; 96374; 99284

== ENCOUNTER 2022-08-12 16:42 | Emergency (ER) | payer OTHER ==
--- OUTSIDE RECORDS SUMMARY | 2022-08-12 17:08 | XMS REPORT | Continuity of Care Document ---
:[address] [facility] t Address [address] [place] [address] Care Team Providers Name Role Phone Viktoria Hernandez DO Primary Care Physician Yolanda Valadez MD Attending Clinician Provider, Unknown Attending Clinician Unavailable Duke German MA Attending Clinician Unavailable Nohemi Girard MA Attending Clinician Unavailable EDELMIRA DIAZ Attending Clinician Unavailable MD EDELMIRA DIAZ Attending Clinician Unavailable GOPAL GIRODANO Attending Clinician Unavailable YOLANDA VALADEZ Admitting Clinician [...] CAD in CAD in Disease Active [facility] artery artery 00:00: Hospita 00 l Coronary Coronary Disease Active [facility] di artery artery 2-07 st disease disease 00:00: Hospita involving involving 00 l [facility] 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 Natural father Other [facility] Natural mother Arthritis [facility] Social History Social Habit Start Date Stop Date Quantity Comments Source Alcohol intake 2022-06-23 2022-06-23 Current drinker of [facility] 00:00:00 00:00:00 [facility] use and 2019-02-05 2019-02-05 Smokeless tobacco [facility] exposure 00:00:00 00:00:00 non-user Hospital Alcohol Comment 2015-11-04 2015-11-04 Occasional [facility] 00:00:00 00:00:00 Hospital Sex Assigned At [birth year] M [facility] 00:00:00 00:00:00 Hospital Smoking Status Start Date Stop Date Source Never smoked tobacco [facility]spital Medications Ordered Filled Start Stop [...] Hospit a 42 by mouth l nightly. levothyroxi Yes 50ug QD Take 1 [facility] ne 2-14 tablet (50 st (SYNTHROID, 10:43: mcg total) Hospita LEVOXYL) 50 42 by mouth l mcg tablet daily. empaglifloz Yes 25mg QD Take 1 [facility] in 25 mg 2-14 tablet (25 st tablet 10:43: mg total) Hospit a 42 by mouth l nightly. clopidogreL 2022- Yes 75mg QD Take 1 [facility] (PLAVIX) 75 -19 05-20 tablet (75 s t mg tablet 00:00: 04:59 mg total) Ho spita 00 :00 by mouth l daily for 120 doses. aspirin 2022- Yes 81mg QD Take 1 [facility] (ECOTRIN) - 05-20 tablet (81 st 81 MG 00:00: 04:59 mg total) Hospit a enteric 00 :00 by mouth l coated daily for tablet 120 doses. clopidogreL 2022- Yes 75mg QD Take 1 [facility] (PLAVIX) 75 - 05-20 tablet (75 s t mg tablet 00:00: 04:59 mg total) Ho spita 00 :00 by mouth l daily for 120 doses. aspirin 2022- Yes 81mg QD Take 1 [facility] (ECOTRIN) 06-23 05-20 tablet (81 st 81 MG 00:00: 04:59 mg total) Hospit a enteric 00 :00 by mouth l coated daily for tablet 120 doses. aspirin 81 0 2022- Yes 81mg QD Chew 1 [facility] mg chewable 18 04-19 tablet (81 s t tablet 00:00: 04:59 mg total) Hospi ta 00 :00 daily for l 90 days. clopidogreL 2022- Yes 75mg QD Take 1 [facility] (PLAVIX) 75 -18 04-19 tablet (75 s t mg tablet 00:00: 04:59 mg total) Ho spita 00 :00 by mouth l daily for 90 days. aspirin 81 2022- Yes 81mg QD Chew 1 [facility] mg chewable 1-18 04-19 tablet (81 s t tablet 00:00: 04:59 mg total) Hospi ta 00 :00 daily for l 90 days. clopidogreL 2022-2022- Yes 75mg QD Take 1 [facility] (PLAVIX) 75 1-18 04-19 tablet (75 s t mg tablet 00:00: 04:59 mg total) Ho spita 00 :00 by mouth l daily for 90 days. hydroCHLORO 2023-0 Yes 12.5mg QD Take 1 [facility] thiazide 1-[address] (MICROZIDE) 00:00: (12.5 mg Ho spita 12.5 mg 00 total) by l capsule mouth nightly. valsartan 2023-0 Yes 80mg QD Take 0.5 [facility] (DIOVAN) 1-[address] 160 MG 00:00: (80 mg Hospita tablet 00 total) by l mouth nightly. hydroCHLORO 2023-0 Yes 12.5mg QD Take 1 [facility] thiazide 1-[address] (MICROZIDE) 00:00: (12.5 mg Ho spita 12.5 mg 00 total) by l capsule mouth nightly. valsartan 2023-0 Yes 80mg QD Take 0.5 [facility] (DIOVAN) 1-[address] 160 MG 00:00: (80 mg Hospita tablet 00 total) by l mouth nightly. hydroCHLORO 2023-0 Yes 12.5mg QD Take 1 [facility] thiazide 1-[address] (MICROZIDE) 00:00: (12.5 mg Ho spita 12.5 mg 00 total) by l capsule mouth nightly. valsartan 2023-0 Yes 80mg QD Take 0.5 [facility] (DIOVAN) 1-[address] 160 MG 00:00: (80 mg Hospita tablet 00 total) by l mouth nightly. hydroCHLORO 2023-0 Yes 12.5mg QD Take 1 [facility] [...] a 03 by mouth l nightly. levothyroxi 2022-0 Yes 50ug QD Take 50 [facility] ne 1-[address] (SYNTHROID, 08:37: mouth Hospi ta LEVOXYL) 50 03 daily. l mcg tablet empaglifloz 2022-0 Yes 25mg QD Take 1 [facility] in 25 mg 1-06 tablet (25 st tablet 08:37: mg total) Hospit a 03 by mouth l nightly. levothyroxi 2021-1 Yes 50ug QD Take 50 [facility] ne 2-[address] (SYNTHROID, 10:21: mouth Hospi ta LEVOXYL) 50 08 daily. l mcg tablet empaglifloz 1 Yes 25mg QD Take 1 [facility] [...] 50 08 daily. l mcg tablet empaglifloz 1 Yes 25mg QD Take 1 [facility] in 25 mg 2-22 tablet (25 st tablet 10:21: mg total) Hospit a 08 by mouth l nightly. aspirin 81 2021-06- Yes 81mg QD Chew 1 [facility] mg chewable 2-24 08-23 tablet (81 s t tablet 00:00: 04:59 mg total) Hospi ta 00 :00 daily for l 90 days. clopidogreL 2021-06- Yes 75mg QD Take 1 [facility] (PLAVIX) 75 2-24 08-23 tablet (75 s t mg tablet 00:00: [...] QD Chew 1 [facility] mg chewable 07-27-23 tablet (81 s t tablet 00:00: 04:59 [...] QD Take 1 [facility] (PLAVIX) 75 2-24 08-23 tablet (75 s t mg tablet 00:00: 04:59 mg total) Ho spita 00 :00 by mouth l daily for 90 days. aspirin 2021-06- No 81mg QD Chew 1 [facility] mg chewable 2-18 tablet (81 s t tablet 00:00: 00:00 mg total) Hospi ta 00 :00 daily for l 90 days. clopidogreL 2021-06- No 75mg QD Take 1 [facility] (PLAVIX) 75 07-27 tablet (75 s t mg tablet 00:00: 00:00 mg total) Ho spita 00 :00 by mouth l daily for 90 days. aspirin 81 2021-06- No 81mg QD Chew 1 [facility] [...] daily for 90 days. atorvastati 2021-06 Yes [id number] 40mg QD Take 1 [facility] (LIPITOR) [...] a day with meals. atorvastati 2021-06 Yes [id number] 40mg QD Take 1 [facility] n (LIPITOR) [...] a day with meals. atorvastati 2021-06 Yes [id number] 40mg QD Take 1 [facility] (LIPITOR) [...] a day with meals. atorvastati 2021-06 Yes [id number] 40mg QD Take 1 [facility] (LIPITOR) [...] a day with meals. atorvastati 2021-06 Yes [id number] 40mg QD Take 1 [facility] (LIPITOR) [...] a day with meals. atorvastati 2021-06 Yes [id number] 40mg QD Take 1 [facility] (LIPITOR) [...] a day with meals. atorvastati 2021-06 Yes [id number] 40mg QD Take 1 [facility] n (LIPITOR) [...] times a day with meals. valsartan 2021-06- No [id number] 80mg QD Take 1 [facility] (DIOVAN) 80 07-11 tablet (80 s t MG tablet 00:00: 05:59 mg total) Ho spita 00 :00 by mouth l daily. valsartan 2021-06- No [id number] 80mg QD Take 1 [facility] (DIOVAN) 80 07-11 tablet (80 s t MG tablet 00:00: 05:59 mg total) Ho spita 00 :00 by mouth l daily. valsartan 2021-06- No [id number] 80mg QD Take 1 [facility] (DIOVAN) 80 07-11- tablet (80 s t MG tablet 00:00: 05:59 mg total) Ho spita 00 :00 by mouth l daily. valsartan 2021-06- No [id number] 80mg QD Take 1 [facility] (DIOVAN) 80 07-11- tablet (80 s t MG tablet 00:00: 05:59 mg total) Ho spita 00 :00 by mouth l daily. valsartan 2021-06 No [id number] 80mg QD Take 1 [facility] (DIOVAN) 80 07-11 tablet (80 s t MG tablet 00:00: 05:59 mg total) Ho spita 00 :00 by mouth l daily. valsartan 2021-06 No [id number] 80mg QD Take 1 [facility] (DIOVAN) 80 07-11 tablet (80 s t MG tablet 00:00: 05:59 mg total) Ho spita 00 :00 by mouth l daily. valsartan 2021-06 No [id number] 80mg QD Take 1 [facility] (DIOVAN) 80 [...] by mouth l daily. valsartan 2021- No [id number] 80mg QD Take 1 [facility] (DIOVAN) 80 11-09 tablet (80 s t MG tablet 00:00: 00:00 mg total) Ho spita 00 :00 by mouth l daily. valsartan 2021- No [id number] 80mg QD Take 1 [facility] (DIOVAN) 80 11-09 tablet (80 s t MG tablet 00:00: 00:00 mg total) Ho spita 00 :00 by mouth l daily. valsartan 2021- No [id number] 80mg QD Take 1 [facility] (DIOVAN) 80 11-09 tablet (80 s t MG tablet 00:00: 00:00 mg total) Ho spita 00 :00 by mouth l daily. valsartan 2021- No [id number] 80mg QD Take 1 [facility] (DIOVAN) 80 11-09 tablet (80 s t MG tablet 00:00: 00:00 mg total) Ho spita 00 :00 by mouth l daily. valsartan 2021- No [id number] 80mg QD Take 1 [facility] (DIOVAN) 80 11-09 tablet (80 s t MG tablet 00:00: 00:00 mg total) Ho spita 00 :00 by mouth l daily. valsartan 2021- No [id number] 80mg QD Take 1 [facility] (DIOVAN) 80 11-09 tablet (80 s t MG tablet 00:00: 00:00 mg total) Ho spita 00 :00 by mouth l daily. valsartan 2021- No [id number] 80mg QD Take 1 [facility] (DIOVAN) 80 [...] 12.5mg QD Take 1 M ethodi thiazide 2-12 03- capsule st (MICROZIDE) 00:00: 00:00 (12.5 mg H ospita 12.5 mg 00 :00 total) by l capsule mouth daily. hydroCHLORO 2020-06- No 12.5mg QD Take 1 M [facility]i thiazide 2-12 03-[address] (MICROZIDE) 00:00: 00:00 (12.5 mg H ospita 12.5 mg 00 :00 total) by l capsule mouth daily. hydroCHLORO 2020-06- No 12.5mg QD Take 1 M [facility] thiazide 2-12 03- capsule st (MICROZIDE) 00:00: 00:00 (12.5 mg H ospita 12.5 mg 00 :00 total) by l capsule mouth daily. hydroCHLORO 2020-06- No 12.5mg QD Take 1 M [facility] thiazide 2-12 03- capsule st (MICROZIDE) 00:00: 00:00 (12.5 mg H ospita 12.5 mg 00 :00 total) by l capsule mouth daily. valsartan 2020-06 No 160mg QD Take 1 [facility] (DIOVAN) 07-12 12-[address] 160 MG 00:00: 00:00 (160 [...] by mouth l daily. atorvastati 2020-06- No [id number] 40mg QD Take 1 [facility] n (LIPITOR) [...] by mouth l daily. atorvastati 2020-06- No [id number] 40mg QD Take 1 [facility] n (LIPITOR) [...] by mouth l daily. atorvastati 2020-06- No [id number] 40mg QD Take 1 [facility] (LIPITOR) [...] 145mg QD Take 1 [facility] (TRICOR) 07-12- tablet st 145 MG 00:00: 00:00 (145 mg Hospita tablet 00 :00 total) by l mouth daily. clopidogreL 2020-06 No 75mg QD Take 1 [facility] (PLAVIX) 75 07-12 tablet (75 s t mg tablet 00:00: 00:00 mg total) Ho spita 00 :00 by mouth l daily. atorvastati 2020-06- No [id number] 40mg QD Take 1 [facility] (LIPITOR) [...] by mouth l daily. atorvastati 2020-06- No [id number] 40mg QD Take 1 [facility] (LIPITOR) [...] by mouth l daily. atorvastati 2020-06- No [id number] 40mg QD Take 1 [facility] (LIPITOR) [...] by mouth l daily. atorvastati 2020-06- No [id number] 40mg QD Take 1 [facility] (LIPITOR) 07-12 tablet (40 s t 40 mg 00:00: 00:00 mg total) Hospit a tablet 00 :00 by mouth l daily. icosapent 2021-1 2022- No 2g Q.5D Take 2 [facility] di ethyL 205-[address] (Vascepa) 1 00:00: 00:00 (2 g Hospi ta gram 00 :00 total) by l capsule mouth 2 (two) times a day with meals. celecoxib 2021- No Take by [facility] (CeleBREX) 11-[address] 200 MG 00:00: 00:00 needed. Hospita capsule 00 :00 l celecoxib 2021- No Take by [facility] (CeleBREX) 11-[address] 200 MG 00:00: 00:00 needed. Hospita capsule 00 :00 l celecoxib 2021- No Take by [facility] (CeleBREX) 11-[address] 200 MG 00:00: 00:00 needed. Hospita capsule 00 :00 l celecoxib 2021- No Take by [facility] (CeleBREX) 11-[address] 200 MG 00:00: 00:00 [...] capsule 00 :00 l VICTOZA 2016-06 Yes [id number] INJECT [facility] 3-CYNTHIA 0.6 0-[address] mg/0.1 mL 00:00: SKIN 1.8MG Ho spita (18 mg/3 00 DAILY l mL) pen injector VICTOZA 2016-06 Yes [id number] INJECT [facility] 3-CYNTHIA 0.6 0-[address] mg/0.1 mL 00:00: SKIN 1.8MG Ho spita (18 mg/3 00 DAILY l mL) pen injector VICTOZA 2016-06 Yes [id number] INJECT [facility] 3-CYNTHIA 0.6 0-[address] mg/0.1 mL 00:00: SKIN 1.8MG Ho spita (18 mg/3 00 DAILY l mL) pen injector LUISTOZA 2016-06 Yes [id number] INJECT [facility] 3-CYNTHIA 0.6 0-[address] mg/0.1 mL 00:00: SKIN 1.8MG Ho spita (18 mg/3 00 DAILY l mL) pen injector VICTOZA 2016-06 Yes [id number] INJECT [facility] 3-CYNTHIA 0.6 0-[address] mg/0.1 mL 00:00: SKIN 1.8MG Ho spita (18 mg/3 00 DAILY l mL) pen injector VICTOZA 2016-06 Yes [id number] INJECT [facility] 3-CYNTHIA 0.6 0-[address] mg/0.1 mL 00:00: SKIN 1.8MG Ho spita (18 mg/3 00 DAILY l mL) pen injector LUISTOZA 2016-06 Yes [id number] INJECT [facility] 3-CYNTHIA 0.6 0-07 UNDER [...] Hospi ta 00 :00 daily. l aspirin 2021- No 81mg QD Chew 1 [facility] mg chewable 8-18 12-22 tablet (81 s t tablet 00:00: 00:00 mg total) Hospi ta 00 :00 daily. l aspirin 2021- No 81mg QD Chew 1 [...] 00 :00 daily. l insulin 2015-06 Yes [id number] 60U QD Inject 60 M ethodi degludec 0-[address] (TRESIBA 00:00: under the Hosp lawanda FLEXTOUCH 00 skin l U-200) 200 nightly. unit/mL (3 mL) insulin pen insulin 2015-06 Yes [id number] 34U Q.[id number] Inject 34 [facility] lispro 0-[id number] (HumaLOG 00:00: 3D under the Hosp [facility] KwikPen) 00 skin 3 l 200 unit/mL (three) (3 mL) times a insulin pen day before meals. insulin 2015-06 Yes [id number] 60U QD Inject 60 M ethodi degludec 0-[address] (TRESIBA 00:00: under the [facility] FLEXTOUCH 00 skin l U-200) 200 nightly. unit/mL (3 mL) insulin pen insulin 2015-06 Yes [id number] 34U Q.[id number] Inject 34 [facility] lispro 0-[id number] (HumaLOG 00:00: 3D under the [facility]osp [facility] KwikPen) 00 skin 3 l 200 unit/mL (three) (3 mL) times a insulin pen day before meals. insulin 2015-06 Yes [id number] 60U QD Inject 60 M ethodi degludec 0-[address] (TRESIBA 00:00: under the [facility] FLEXTOUCH 00 skin l U-200) 200 nightly. unit/mL (3 mL) insulin pen insulin 2015-06 Yes [id number] 34U Q.[id number] Inject 34 [facility] lispro 0-[id number] (HumaLOG 00:00: 3D under the [facility]osp [facility] KwikPen) 00 skin 3 l 200 unit/mL (three) (3 mL) times a insulin pen day before meals. insulin 2015-06 Yes [id number] 60U QD Inject 60 M ethodi degludec 0-[address] (TRESIBA 00:00: under the [facility] FLEXTOUCH 00 skin l U-200) 200 nightly. unit/mL (3 mL) insulin pen insulin 2015-06 Yes [id number] 34U Q.[id number] Inject 34 [facility] lispro 0-[id number] (HumaLOG 00:00: 3D under the Hosp [facility] KwikPen) 00 skin 3 l 200 unit/mL (three) (3 mL) times a insulin pen day before meals. insulin 2015-06 Yes [id number] 60U QD Inject 60 M ethodi degludec 0-[address] (TRESIBA 00:00: under the [facility] FLEXTOUCH 00 skin l U-200) 200 nightly. unit/mL (3 mL) insulin pen insulin 2015-06 Yes [id number] 34U Q.[id number] Inject 34 [facility] lispro 0-[id number] (HumaLOG 00:00: 3D under the [facility]osp [facility] KwikPen) 00 skin 3 l 200 unit/mL (three) (3 mL) times a insulin pen day before meals. insulin 2015-06 Yes [id number] 60U QD Inject 60 M ethodi degludec 0-[address] (TRESIBA 00:00: under the [facility] FLEXTOUCH 00 skin l U-200) 200 nightly. unit/mL (3 mL) insulin pen insulin 2015-06 Yes [id number] 34U Q.[id number] Inject 34 [facility] lispro 0-[id number] (HumaLOG 00:00: 3D under the Hosp [facility] KwikPen) 00 skin 3 l 200 unit/mL (three) (3 mL) times a insulin pen day before meals. insulin 2015-06 Yes [id number] 60U QD Inject 60 M ethodi degludec 0-[address] (TRESIBA 00:00: under the [facility] FLEXTOUCH 00 skin l U-200) 200 nightly. unit/mL (3 mL) insulin pen insulin 2015-06 Yes [id number] 34U Q.[id number] Inject 34 [facility] lispro 0-[id number] (HumaLOG 00:00: 3D under the Hosp [facility] KwikPen) 00 skin 3 l 200 unit/mL (three) (3 mL) times a insulin pen day before meals. Immunizations Ordered Immunization Filled Immunization Date Status Commen ts Source Name Name PFIZER COVID-19 MRNA 2021-03-18 Completed [facility] VACCINATION 00:00:00 [facility] PFIZER COVID-19 MRNA 2021-03-18 Completed [facility] VACCINATION 00:00:00 [facility] PFIZER COVID-19 MRNA 2021-03-18 Completed [facility] VACCINATION 00:00:00 [facility] PFIZER COVID-19 MRNA 2021-03-18 Completed [facility] VACCINATION 00:00:00 [facility] PFIZER COVID-19 MRNA 2021-03-18 Completed [facility] VACCINATION 00:00:00 [facility] PFIZER COVID-19 MRNA 2021-03-18 Completed [facility] VACCINATION 00:00:00 [facility] PFIZER COVID-19 MRNA 2021-03-18 Completed [facility] VACCINATION 00:00:00 [facility] PFIZER COVID-19 MRNA 2020-08-01 Completed [facility] VACCINATION 00:00:00 [facility] PFIZER COVID-19 MRNA 2020-08-01 Completed [facility] VACCINATION 00:00:00 [facility] PFIZER COVID-19 MRNA 2020-08-01 Completed [facility] VACCINATION 00:00:00 [facility] PFIZER COVID-19 MRNA 2020-08-01 Completed [facility] VACCINATION 00:00:00 [facility] PFIZER COVID-19 MRNA 2020-08-01 Completed [facility] VACCINATION 00:00:00 [facility] PFIZER COVID-19 MRNA 2020-08-01 Completed [facility] VACCINATION 00:00:00 [facility] PFIZER COVID-19 MRNA 2020-08-01 Completed [facility] VACCINATION 00:00:00 [facility] PFIZER COVID-19 MRNA 2020-07-11 Completed [facility] VACCINATION 00:00:00 [facility] PFIZER COVID-19 MRNA 2020-07-11 Completed [facility] VACCINATION 00:00:00 [facility] PFIZER COVID-19 MRNA 2020-07-11 Completed [facility] VACCINATION 00:00:00 [facility] PFIZER COVID-19 MRNA 2020-07-11 Completed [facility] VACCINATION 00:00:00 [facility] PFIZER COVID-19 MRNA 2020-07-11 Completed [facility] VACCINATION 00:00:00 [facility] PFIZER COVID-19 MRNA 2020-07-11 Completed [facility] VACCINATION 00:00:00 [facility] PFIZER COVID-19 MRNA 2020-07-11 Completed [facility] VACCINATION 00:00:00 [facility] Pneumococcal 2014-03-24 Completed [facility] Polysaccharide 00:00:00 [facility] Pneumococcal 2014-03-24 Completed [facility] Polysaccharide 00:00:00 [facility] Pneumococcal 2014-03-24 Completed [facility] Polysaccharide 00:00:00 [facility] Pneumococcal 2014-03-24 Completed [facility] Polysaccharide 00:00:00 [facility] Pneumococcal 2014-03-24 Completed [facility] Polysaccharide 00:00:00 [facility] Pneumococcal 2014-03-24 Completed [facility] Polysaccharide 00:00:00 [facility] Pneumococcal 2014-03-24 Completed [facility] Polysaccharide 00:00:00 Hospital Vital Signs Vital Name Observation Time Observation Value Comments Source Systolic blood 2022-07-19 16:43:00 112 mm[Hg] [facility] pressure Diastolic blood 2022-07-19 16:43:00 56 mm[facility]Hg] [facility] pressure Heart rate 2022-07-19 16:43:00 70 /min [facility] Body height 2022-07-19 16:43:00 177.8 cm [facility] Body weight 2022-07-19 16:43:00 98.431 kg [facility] BMI 2022-07-19 16:43:00 31.14 kg/m2 [facility] Oxygen saturation in 2022-06-22 22:00:00 97 /min [facility] Arterial blood by Pulse oximetry Respiratory rate 2022-06-22 21:45:00 17 /min [facility] Body temperature 2022-06-22 21:00:00 36.39 Aida [facility] Systolic blood 2022-06-10 14:36:00 128 mm[Hg] [facility] pressure Diastolic blood 2022-06-10 14:36:00 74 mm[Hg] [facility] pressure Heart rate 2022-06-10 14:36:00 70 /min [facility] Body height 2022-06-10 14:36:00 177.8 cm [facility] Body weight 2022-06-10 14:36:00 97.523 kg [facility] BMI 2022-06-10 14:36:00 30.85 kg/m2 [facility] Systolic blood 2022-05-26 14:16:25 128 mm[Hg] [facility] pressure Diastolic blood 2022-05-26 14:16:25 71 mm[Hg] [facility] pressure Heart rate 2022-05-26 14:16:25 60 /min [facility] Body temperature 2022-05-26 14:16:25 36.22 Aida [facility] Respiratory rate 2022-05-26 14:16:25 18 /min [facility] Oxygen saturation in 2022-05-26 14:16:25 94 /min [facility] Arterial blood by Pulse oximetry Body weight 2022-05-26 11:03:39 99.791 kg [facility] BMI 2022-05-26 11:03:39 31.57 kg/m2 [facility] Body height 2022-05-25 17:52:00 177.8 cm [facility] Procedures Procedure Date / Time Performing Clinician Source Performed ECG PRE/POST OP 2022-06-22 17:24:54 Yolanda Valadez spital POC GLUCOSE 2022-06-22 17:17:00 Yolanda Valadez spital CV IVUS OCT CORONARY 2022-06-22 16:32:32 Yolanda Valadez [facility] ACTIVATED CLOTTING TIME 2022-06-22 16:05:00 [facility] CREATINE KINASE, TOTAL 2022-06-22 14:39:00 [facility] ([facility]) TROPONIN T 2022-06-22 14:39:00 Yolanda Valadez spital CBC WITH PLATELET AND 2022-06-22 14:39:00 Yolanda Valadez [facility] DIFFERENTIAL COMPREHENSIVE METABOLIC 2022-06-22 14:39:00 [facility] PANEL ESTIMATED GFR 2022-06-22 14:39:00 Yolanda Valadez spital ECG 12-LEAD 2022-06-22 14:37:58 Yolanda Valaedz Ho spital POC GLUCOSE 2022-06-22 13:29:00 Yolanda Valadez spital AST (SGOT) 2022-06-15 15:45:00 Yolanda Valadez [facility]ital LIPID PANEL 2022-06-15 15:45:00 Yolanda Valadez spital CBC WITH PLATELET AND 2022-06-15 15:25:00 Yolanda Valadez [facility] DIFFERENTIAL PROTHROMBIN TIME WITH INR 2022-06-15 15:25:00 Yolanda Valadez [facility] COMPREHENSIVE METABOLIC 2022-06-15 15:25:00 Yolanda Valadez [facility] PANEL ESTIMATED GFR 2022-06-15 15:25:00 Yolanda Valadez [facility] POC GLUCOSE 2022-05-26 15:08:00 Yolanda Valadez Ho [facility]ital BASIC METABOLIC PANEL 2022-05-26 03:31:00 [facility] CBC WITH PLATELET AND 2022-05-26 03:31:00 [facility] DIFFERENTIAL ESTIMATED GFR 2022-05-26 03:31:00 Yolanda Valadez [facility] POC GLUCOSE 2022-05-26 02:05:00 Yolanda Valadez [facility] POC GLUCOSE 2022-05-26 00:38:00 Yolanda Valadez [facility] POC GLUCOSE 2022-05-25 23:33:00 Yolanda Valadez [facility] ECG PRE/POST OP 2022-05-25 22:46:30 [facility] CV IVUS OCT CORONARY 2022-05-25 22:13:55 [facility] ACTIVATED CLOTTING TIME 2022-05-25 21:26:00 Yolanda Valadez [facility] ECG PRE/POST OP 2022-05-25 18:06:37 Yolanda Valadez Ho [facility]ital POC GLUCOSE 2022-05-25 18:02:00 Yolanda Valadez [facility] CBC WITH PLATELET AND 2022-05-23 13:50:00 Yolanda Valadez [facility] DIFFERENTIAL COMPREHENSIVE METABOLIC 2022-05-23 13:50:00 Yolanda Valadez [facility] PANEL PROTHROMBIN TIME WITH INR 2022-05-23 13:50:00 Yolanda Valadez [facility] CV STRESS TEST NUCLEAR 2022-05-04 20:53:[facility] MYOCARDIAL PERFUSION 2022-05-04 20:53[facility]48 [facility] Plan of Care Planned Activity Planned Date Details Comments Source Future Scheduled 2022-08-05 Hepatitis C screening [facility] Test 15:56:49 (procedure) [code = 315870922] Future Scheduled 2022-08-05 COLONOSCOPY SCREENING [facility] Test 15:56:49 [code = COLONOSCOPY SCREENING] Future Scheduled 2022-08-05 HEPATITIS B VACCINES [facility] Test 15:56:49 (1 of 3 - Risk 3-dose series) [code = HEPATITIS B VACCINES (1 of 3 - Risk 3-dose series)] Future Scheduled 2022-08-05 65+ [facility] VACCINE (2 - PCV) [code = 65+ PNEUMOCOCCAL VACCINE (2 - PCV)] Future Scheduled 2022-08-05 SHINGLES VACCINES (2 [facility] Test 15:56:49 of 2) [code = SHINGLES VACCINES (2 of 2)] Future Scheduled 2022-08-05 INFLUENZA VACCINE [facility] Test 15:56:49 [code = INFLUENZA VACCINE] Future Scheduled 2022-07-26 Hepatitis C screening [facility] Test 12:50:44 (procedure) [code = [id number]] Future Scheduled 2022-07-26 COLONOSCOPY SCREENING [facility] Test 12:50:44 [code = COLONOSCOPY SCREENING] Future Scheduled 2022-07-26 HEPATITIS B VACCINES [facility] Test 12:50:44 (1 of 3 - Risk 3-dose series) [code = HEPATITIS B VACCINES (1 of 3 - Risk 3-dose series)] Future Scheduled 2022-07-26 65+ [facility] 12:50:44 VACCINE (2 - PCV) [code = 65+ PNEUMOCOCCAL VACCINE (2 - PCV)] Future Scheduled 2022-07-26 SHINGLES VACCINES (2 [facility] Test 12:50:44 of 2) [code = SHINGLES VACCINES (2 of 2)] Future Scheduled 2022-07-26 [facility]FLU[facility]ZA VACCINE [facility] 12:50:44 [code = INFLUENZA VACCINE] Future Scheduled 2022-06-20 Hepatitis C screening [facility] Test 14:43:04 (procedure) [code = 263647337] Future Scheduled 2022-06-20 COLONOSCOPY SCREENING [facility] Test 14:43:04 [code = COLONOSCOPY SCREENING] Future Scheduled 2022-06-20 65+ P[facility]UMOCOCCAL [facility] Test 14:43:04 VACCINE (2 - PCV) [code = 65+ PNEUMOCOCCAL VACCINE (2 - PCV)] Future Scheduled 2022-06-20 SHINGLES VACCINES (2 [facility] Test 14:43:04 of 2) [code = SHINGLES VACCINES (2 of 2)] Future Scheduled 2022-06-20 INFLUENZA VACCINE [facility] Test 14:43:04 [code = INFLUENZA VACCINE] Future Scheduled 2022-06-17 Hepatitis C screening [facility] Test 14:02:46 (procedure) [code = [id number]] Future Scheduled 2022-06-17 COLONOSCOPY SCREENING [facility] Test 14:02:46 [code = COLONOSCOPY SCREENING] Future Scheduled 2022-06-17 65+ [facility]OCOCCAL [facility] Test 14:02:46 VACCINE (2 - PCV) [code = 65+ PNEUMOCOCCAL VACCINE (2 - PCV)] Future Scheduled 2022-06-17 SHINGLES VACCINES (2 [facility] Test 14:02:46 of 2) [code = SHINGLES VACCINES (2 of 2)] Future Scheduled 2022-06-17 INFLUENZA VACCINE [facility] Test 14:02:46 [code = INFLUENZA VACCINE] Future Scheduled 2022-06-08 Hepatitis C screening [facility] Test 15:14:00 (procedure) [code = [id number]] Future Scheduled 2022-06-08 COLONOSCOPY SCREENING [facility] Test 15:14:00 [code = COLONOSCOPY SCREENING] Future Scheduled 2022-06-08 HEPATITIS B VACCINES [facility] Test 15:14:00 (1 of 3 - Risk 3-dose series) [code = HEPATITIS B VACCINES (1 of 3 - Risk 3-dose series)] Future Scheduled 2022-06-08 65+ PNEUMOCOCCAL Method[facility] Test 15:14:00 VACCINE (2 - PCV) [code = 65+ PNEUMOCOCCAL VACCINE (2 - PCV)] Future Scheduled 2022-06-08 SHINGLES VACCINES (2 [facility] Test 15:14:00 of 2) [code = SHINGLES VACCINES (2 of 2)] Future Scheduled 2022-06-08 INFLUENZA VACCINE [facility] Test 15:14:00 [code = INFLUENZA VACCINE] Future Scheduled 2022-06-08 Hepatitis C screening [facility] Test 15:14:00 (procedure) [code = [id number]] Future Scheduled 2022-06-08 COLONOSCOPY SCREENING [facility] Test 15:14:00 [code = COLONOSCOPY SCREENING] Future Scheduled 2022-06-08 HEPATITIS B VACCINES [facility] Test 15:14:00 (1 of 3 - Risk 3-dose series) [code = HEPATITIS B VACCINES (1 of 3 - Risk 3-dose series)] Future Scheduled 2022-06-08 65+ [facility] VACCINE (2 - PCV) [code = 65+ PNEUMOCOCCAL VACCINE (2 - PCV)] Future Scheduled 2022-06-08 SHINGLES VACCINES (2 [facility] Test 15:14:00 of 2) [code = SHINGLES VACCINES (2 of 2)] Future Scheduled 2022-06-08 INFLUENZA VACCINE [facility] Test 15:14:00 [code = INFLUENZA VACCINE] Future Scheduled 2022-06-07 Hepatitis C screening [facility] Test 14:22:22 (procedure) [code = [id number]] Future Scheduled 2022-06-07 COLONOSCOPY SCREENING [facility] Test 14:22:22 [code = COLONOSCOPY SCREENING] Future Scheduled 2022-06-07 HEPATITIS B VACCINES [facility] Test 14:22:22 (1 of 3 - Risk 3-dose series) [code = HEPATITIS B VACCINES (1 of 3 - Risk 3-dose series)] Future Scheduled 2022-06-07 65+ [facility] 14:22:[facility] VACCINE (2 - PCV) [code = 65+ PNEUMOCOCCAL VACCINE (2 - PCV)] Future Scheduled 2022-06-07 SHINGLES VACCINES (2 [facility] Test 14:22:22 of 2) [code = SHINGLES VACCINES (2 of 2)] Future Scheduled 2022-06-07 INFLUENZA VACCINE Method [facility] Test 14:22:22 [code = INFLUENZA VACCINE] Encounters Start End Encounter Admission Attending Care Care Encounter Source Date/Time Date/Time Type Type Clinicians Facility Department ID 2022-07-19 2022-07-19 Office Rory, 1.2.840.1 [id number] Methodi 10:20:00 10:30:00 Visit Yolanad RTasneem 61394.1.[address] 3.430.2.7 Hospit a .3.591172 l .8 2022-07-19 2022-07-19 Office Valadez, 1.2.840.1 [id number] Methodi 10:20:00 10:30:00 Visit Yolanda R. 16062.1.[address] 3.430.2.7 Hospit a .3.134948 l .8 2022-07-19 2022-07-19 Travel 1.2.840.1 1.2.254.019 1486 [id number] Methodi 00:00:00 00:00:[address] 3.430.2.7 0.2.7.3.698 Ho spita .3.792568 084.8 l .8 2022-07-19 2022-07-19 Travel 1.2.840.1 1.2.748.866 3157 578184 Methodi 00:00:00 00:00:[address] 3.430.2.7 0.2.7.3.698 Ho spita .3.853523 084.8 l .8 2022-06-22 2022-06-22 [facility] Valadez, 1.2.840.1 [id number] 25082 Methodi 07:12:00 16:55:00 Encounter Yolanda Ortiz. 44015.1.[address] 3.430.2.7 Hospit a .3.145993 l .8 2022-06-22 2022-06-22 Surgery Valadez, 1.2.840.1 [id number] 5269 Methodi 09:15:00 11:20:00 Yol[address] 3.430.2.7 Hospit a .3.143467 l .8 2022-06-22 2022-06-22 Surgery Valadez, 1.2.840.1 [id number] 4989 Methodi 09:15:00 11:20:00 Yolanda Romeo 21406.1.[address] 3.430.2.7 Hospit a .3.795475 l .8 2022-06-22 2022-06-22 Travel 1.2.840.1 1.2.554.560 7907 085754 Methodi 00:00:00 00:00:[address] 3.430.2.7 0.2.7.3.698 Ho spita .3.326929 084.8 l .8 2022-06-22 2022-06-22 [facility] RORY, [facility] [id number] [place] [address] 00:00:00 00:00:00 [facility] YOLANDA [address] 2022-06-22 2022-06-22 Travel 1.2.840.1 1.2.608.986 8162 043224 Methodi 00:00:00 00:00:[address] 3.430.2.7 0.2.7.3.698 Ho spita .3.208690 084.8 l .8 2022-06-21 2022-06-21 Documentat Provider, 1.2.840.1 [id number] 2 [id number] Methodi 00:00:00 00:00:00 ion Unknown 50194.1.[address] 3.430.2.7 Hospit a .3.786941 l .8 2022-06-21 2022-06-21 Documentat Provider, 1.2.840.1 [id number] 2 [id number] Methodi 00:00:00 00:00:00 ion Unknown 36507.1.[address] 3.430.2.7 Hospit a .3.430465 l .8 2022-06-16 2022-06-16 Travel 1.2.840.1 1.2.569.724 4669 956085 Methodi 00:00:00 00:00:[address] 3.430.2.7 0.2.7.3.698 Ho spita .3.405701 084.8 l .8 2022-06-16 2022-06-16 Travel 1.2.840.1 1.2.973.573 3706 966329 Methodi 00:00:00 00:00:[address] 3.430.2.7 0.2.7.3.698 Ho spita .3.726355 084.8 l .8 2022-06-15 2022-06-15 Octavia Valadez, 1.2.840.1 [id number] 0453 Methodi 09:25:00 09:30:00 [address] 3.430.2.7 Hospit a .3.989343 l .8 2022-06-15 2022-06-15 Octavia Valadez, 1.2.840.1 [id number] 3399 Methodi 09:25:00 09:30:00 [address] 3.430.2.7 Hospit a .3.255572 l .8 2022-06-15 2022-06-15 [facility] 1.2.840.1 [id number] 2099 012357 Methodi 00:00:00 00:00:[address] 3.430.2.7 Hospit a .3.799183 l .8 2022-06-15 2022-06-15 [facility] 1.2.840.1 [id number] 2099 366593 Methodi 00:00:00 00:00:[address] 3.430.2.7 Hospit a .3.718752 l .8 2022-06-14 2022-06-14 Fouzia Valadez 1.2.840.1 [id number] 007248 4456 Methodi 00:00:00 00:00:00 Y[address] 3.430.2.7 Hospit a .3.448174 l .8 2022-06-14 2022-06-14 Refill Valadez, 1.2.840.1 [id number] [id number] 4363 Methodi 00:00:00 00:00:00 [address] 3.430.2.7 Hospit a .3.152745 l .8 2022-06-10 2022-06-10 Office Valadez, 1.2.840.1 [id number] 3467 Methodi 09:00:00 12:26:34 Visit Yolanda R. 86383.1.[address] 3.430.2.7 Hospit a .3.072344 l .8 2022-06-10 2022-06-10 Office Valadez, 1.2.840.1 [id number] 1865 Methodi 09:00:00 12:26:34 Visit Yolanda R. 69502.1.[address] 3.430.2.7 Hospit a .3.045281 l .8 2022-06-10 2022-06-10 Orders Shaji, 1.2.840.1 [id number] 245 [id number] Methodi 00:00:00 00:00:00 Only Nohemi 45470.1.[address] 3.430.2.7 Hospit a .3.521862 l .8 2022-06-10 2022-06-10 Orders Shaji, 1.2.840.1 [id number] 178 [id number] Methodi 00:00:00 00:00:00 Only Nohemi 03172.1.[address] 3.430.2.7 Hospit a .3.103054 l .8 2022-06-09 2022-06-09 Travel 1.2.840.1 1.2.354.958 0675 127968 Methodi 00:00:00 00:00:[address] 3.430.2.7 0.2.7.3.698 Ho spita .3.361140 084.8 l .8 2022-06-09 2022-06-09 Travel 1.2.840.1 1.2.805.542 4063 114808 Methodi 00:00:00 00:00:[address] 3.430.2.7 0.2.7.3.698 Ho spita .3.595305 084.8 l .8 2022-06-07 2022-06-07 [facility], 1.2.840.1 [id number] 2099 927166 Methodi 00:00:00 00:00:00 Yolanda [address] 3.430.2.7 Hospit a .3.536122 l .8 2022-06-07 2022-06-07 [facility], 1.2.840.1 [id number] 2099 211515 Methodi 00:00:00 00:00:00 [address] 3.430.2.7 Hospit a .3.511299 l .8 2022-05-25 2022-05-26 [facility], 1.2.840.1 [id number] 79338 90522 Methodi 11:41:00 10:21:00 Encounter Yolanda R. 50116.1.[address] 3.430.2.7 Hospit a .3.626922 l .8 2022-05-25 2022-05-26 [facility], 1.2.840.1 [id number] 83085 86736 Methodi 11:41:00 10:21:00 Encounter Yolanda R. 69701.1.[address] 3.430.2.7 Hospit a .3.341223 l .8 2022-05-25 2022-05-25 [facility], 1.2.840.1 [id number] 2741 Methodi 14:45:00 15:50:00 Yolanda [address]32.[address] 3.430.2.7 Hospit a .3.887497 l .8 2022-05-25 2022-05-25 Surgery [facility], 1.2.840.1 [id number] 2330 Methodi 14:45:00 15:50:00 Yolanda R[address] 3.430.2.7 Hospit a .3.315272 l .8 2022-05-25 2022-05-25 Travel 1.2.840.1 1.2.986.053 4371 140223 Methodi 00:00:00 00:00:[address] 3.430.2.7 0.2.7.3.698 Ho spita .3.825526 084.8 l .8 2022-05-25 2022-05-25 Travel 1.2.840.1 1.2.816.804 5909 140223 Methodi 00:00:00 00:00:[address] 3.430.2.7 0.2.7.3.698 Ho spita .3.182614 084.8 l .8 2022-05-24 2022-05-24 Documentat Provider, 1.2.840.1 [id number] 2 [id number] Methodi 00:00:00 00:00:00 ion Unknown 72005.1.[address] 3.430.2.7 Hospit a .3.679886 l .8 2022-05-24 2022-05-24 Travel 1.2.840.1 1.2.012.213 2270 490962 Methodi 00:00:00 00:00:[address] 3.430.2.7 0.2.7.3.698 Ho spita .3.533094 084.8 l .8 2022-05-24 2022-05-24 Documentat Provider, 1.2.840.1 [id number] 2 [id number] Methodi 00:00:00 00:00:00 ion Unknown 73462.1.[address] 3.430.2.7 Hospit a .3.789969 l .8 2022-05-24 2022-05-24 Travel 1.2.840.1 1.2.548.884 9255 923665 Methodi 00:00:00 00:00:[address] 3.430.2.7 0.2.7.3.698 Ho spita .3.455312 084.8 l .8 2022-05-10 2022-05-10 Office Valadez, 1.2.840.1 [id number] 1781 Methodi 10:20:00 15:13:28 Visit Yolanda Ortiz. 58807.1.[address] 3.430.2.7 Hospit a .3.399439 l .8 2022-05-10 2022-05-10 Office Valadez, 1.2.840.1 [id number] 0865 Methodi 10:20:00 15:13:28 Visit Yolanda Ortiz. 08124.1.[address] 3.430.2.7 Hospit a .3.794311 l .8 2022-05-10 2022-05-10 Travel 1.2.840.1 1.2.309.922 0345 578571 Methodi 00:00:00 00:00:[address] 3.430.2.7 0.2.7.3.698 Ho spita .3.162838 084.8 l .8 2022-05-10 2022-05-10 Travel 1.2.840.1 1.2.945.684 8647 127197 Methodi 00:00:00 00:00:[address] 3.430.2.7 0.2.7.3.698 Ho spita .3.636480 084.8 l .8 2022-05-03 2022-05-03 [id number] [address] [place] 00:00:00 00:00:00 YOLANDA [address] 2022-05-03 2022-05-03 Travel 1.2.840.1 1.2.463.725 9815 578320 Methodi 00:00:00 00:00:[address] 3.430.2.7 0.2.7.3.698 Ho spita .3.310731 084.8 l .8 2022-05-03 2022-05-03 Travel 1.2.840.1 1.2.728.830 9441 129116 Methodi 00:00:00 00:00:[address] 3.430.2.7 0.2.7.3.698 Ho spita .3.094801 084.8 l .8 2021-11-09 2021-11-09 Office Valadez, 1.2.840.1 [id number] 5556 Methodi 10:45:00 15:00:33 Visit Yolanda RTasneem 09862.1.[address] 3.430.2.7 Hospit a .3.249853 l .8 2021-11-09 2021-11-09 Office Valadez, 1.2.840.1 [id number] 1819 Methodi 10:45:00 15:00:33 Visit Yolanda RTasneem 61882.1.[address] 3.430.2.7 Hospit a .3.034263 l .8 2021-11-09 2021-11-09 Travel 1.2.840.1 1.2.704.254 1342 029387 Methodi 00:00:00 00:00:[address] 3.430.2.7 0.2.7.3.698 Ho spita .3.591343 084.8 l .8 2021-11-09 2021-11-09 Travel 1.2.840.1 1.2.690.133 0708 085339 Methodi 00:00:00 00:00:[address] 3.430.2.7 0.2.7.3.698 Ho spita .3.799982 084.8 l .8 2021-05-11 2021-05-11 Outpatient RORY [facility] [id number] [address] [place] 00:00:00 00:00:00 YOLANDA [address] 2021-04-23 2021-04-23 Outpatient EMILY [facility] [id number] [address] [place] 00:00:00 00:00:00 N[address]A [address] 2021-04-19 2021-04-19 Outpatient RAGINIAKOTA, [facility] [address] [place] 00:00:00 00:00:00 N[address]A [address] 2021-02-22 2021-02-22 Outpatient EMILY, [facility] [address] [place] 00:00:00 00:00:00 N[address]HARIKA [address] 2020-11-03 2020-11-03 Outpatient RORY, [facility] [id number] [address] [place] 00:00:00 00:00:00 YOLANDA [address] 2020-08-01 2020-08-01 Outpatient GIULIANA, [facility] [id number] [address] [place] 00:00:00 00:00:00 GOPAL [address] 2020-07-11 2020-07-11 Outpatient [facility] [id number] [address] [place] 00:00:00 00:00:[address] 2020-05-05 2020-05-05 Outpatient VALADEZ, [facility] [id number] [address] [place] 00:00:00 00:00:00 YOLANDA [address] 2020-04-28 2020-04-28 Outpatient VALADEZ, [facility] [id number] [address] [place] 00:00:00 00:00:00 YOLANDA [address] 2020-04-28 2020-04-28 Outpatient VALADEZ, [facility] [id number] [address] [place] 00:00:00 00:00:00 YOLANDA [address] 2020-02-04 2020-02-04 Outpatient VALADEZ, [facility] [id number] [address] [place] 00:00:00 00:00:00 YOLANDA [address] Results Test Description Test Time Test Comments Results Result Comments Source ECG 12 lead 2022-06-23 12:17:44 Test Item Value Reference Range Interpretation Comme nts Ventricular rate (test code = 253) 63 Atrial rate (test code = 255) 63 IN interval (test code = 266) 162 QRSD [...] of 25-MAY-2022 16:46,-No significant change was found- [facility] 12 [id number] 12:17:44 Test Item Value Reference Range Interpretation Comments Ventricular rate (test 63 code = 253) Atrial rate (test code 63 = 255) IN interval (test code 162 = 266) QRSD interval (test 94 code = 260) QT interval (test code 402 = 264) QTC interval (test code 411 = 265) P axis 1 (test code = 33 267) QRS axis 1 (test code = -8 268) T wave axis (test code 7 = 270) EKG impression (test Poor data code = 273) quality-Normal sinus rhythm-Normal ECG-In automated comparison with ECG of 25-MAY-2022 16:46,-No significant change was found- [facility] Pre/Post [id number] 12:15:35 Test Item Value Reference Range Interpretation Comments Ventricular rate (test 60 code = 253) Atrial rate (test code 60 = 255) IN interval (test code 180 = 266) QRSD [...] of 22-JUN-2022 08:37,-No significant change was found- [facility] Pre/Post [id number] 12:15:35 Test Item Value Reference Range Interpretation Comments Ventricular rate (test 60 code = 253) Atrial rate (test code 60 = 255) IN interval (test code 180 = 266) QRSD [...] of 22-JUN-2022 08:37,-No significant change was found- [facility] [id number] 17:19:00 Test Item Value Reference Range Interpretation Comments POC glucose (test code = 102 mg/dL 65-99 H Ope rator Name: [id number]) Thomas Chenice ID: [id number] able : No Action Nee ded Lab Interpretation (test Abnormal code = 62215-3) [facility] [id number] 17:19:00 Test Item Value Reference Range Interpretation Comments POC glucose (test code = 102 mg/dL 65-99 H Ope rator Name: 32518-6) Thomas Riley MDevice ID: [id number] able : No Action Nee ded Lab Interpretation (test Abnormal code = 74211-7) [facility] [id number] 16:12:00 Test Item Value Reference Range Interpretation Comments Activated clotting time 394 See_Comment H Oper ator Name: (test code = 5298) Badescu B iancaDevice ID: [id number] [Automated mess age] The system [employer] generated this result transmitted ref erence range: 96 - 152 sec. The reference r lisa was not used to interpret this result as normal/abnor mal. Lab Interpretation (test Abnormal code = 41510-4) [facility] [id number] 16:12:00 Test Item Value Reference Range Interpretation Comments Activated clotting time 394 See_Comment H Oper ator Name: (test code = 5298) Badescu B iancaDevice ID: [id number] [Automated mess age] The system [employer] h generated this result transmitted ref erence range: 96 - 152 sec. The reference r lisa was not used to interpret this result as normal/abnor mal. Lab Interpretation (test Abnormal code = 06146-3) [facility] Pre/Post Op (in AM)2022-05-26 15:26:35 Test Item Value Reference Range Interpretation Comments Ventricular rate (test code = 253) Atrial rate (test code = 255) IN interval (test code = 266) QRSD interval (test code = 260) QT interval (test code = 264) QTC interval (test code = 265) P axis 1 (test code = 267) QRS axis 1 (test code = 268) T wave axis (test code = 270) EKG impression (test code Sinus = 273) bradycardia-Electron ically Signed By Julio Capellan MD ([id number]) on 05/26/2022 9:26:33 AM [facility] Pre/Post Op (in AM)2022-05-26 15:26:35 Test Item Value Reference Range Interpretation Comments Ventricular rate (test code = 253) Atrial rate (test code = 255) IN interval (test code = 266) QRSD interval (test code = 260) QT interval (test code = 264) QTC interval (test code = 265) P axis 1 (test code = 267) QRS axis 1 (test code = 268) T wave axis (test code = 270) EKG impression (test code Sinus = 273) bradycardia-Electron ically Signed By Julio Capellan MD ([id number]) on 05/26/2022 9:26:33 AM [facility] Pre/Post Op (in AM)2022-05-26 15:26:35 Test Item Value Reference Range Interpretation Comments Ventricular rate (test code = 253) Atrial rate (test code = 255) IN interval (test code = 266) QRSD interval (test code = 260) QT interval (test code = 264) QTC interval (test code = 265) P axis 1 (test code = 267) QRS axis 1 (test code = 268) T wave axis (test code = 270) EKG impression (test code Sinus = 273) bradycardia-Electron ically Signed By Julio Capellan MD ([id number]) on 05/26/2022 9:26:33 AM [facility] Pre/Post Op (in AM)2022-05-26 15:26:35 Test Item Value Reference Range Interpretation Comments Ventricular rate (test code = 253) Atrial rate (test code = 255) IN interval (test code = 266) QRSD interval (test code = 260) QT interval (test code = 264) QTC interval (test code = 265) P axis 1 (test code = 267) QRS axis 1 (test code = 268) T wave axis (test code = 270) EKG impression (test code Sinus = 273) bradycardia-Electron ically Signed By Julio Capellan MD ([id number]) on 05/26/2022 9:26:33 AM [facility] Pre/Post Op (in AM)2022-05-26 15:26:35 Test Item Value Reference Range Interpretation Comments Ventricular rate (test code = 253) Atrial rate (test code = 255) IN interval (test code = 266) QRSD interval (test code = 260) QT interval (test code = 264) QTC interval (test code = 265) P axis 1 (test code = 267) QRS axis 1 (test code = 268) T wave axis (test code = 270) EKG impression (test code Sinus = 273) bradycardia-Electron ically Signed By Julio Capellan MD ([id number]) on 05/26/2022 9:26:33 AM [facility]2022-12-22 15:25:00 Test Item Value Reference Range Interpretation Comments POC glucose (test code 126 mg/dL 65-99 H Opera tor Name: Srinivas = 59753-4) TiffanyDevice I D: [id number] able: [facility] Notified wheelchair rental clerk Interpretation Abnormal (test code = 21431-0) [facility]2022-12-22 15:25:00 Test Item Value Reference Range Interpretation Comments POC glucose (test code 126 mg/dL 65-99 H Opera tor Name: Srinivas = 38471-9) [employer] I D: [id number] able: [facility] Notified wheelchair rental clerk Interpretation Abnormal (test code = 69077-1) [facility]2022-12-22 15:25:00 Test Item Value Reference Range Interpretation Comments POC glucose (test code 126 mg/dL 65-99 H Opera tor Name: Srinivas = 74422-3) [employer] I D: [id number] able: TM Notified wheelchair rental clerk Interpretation Abnormal (test code = 45368-1) [facility] [id number] 15:25:00 Test Item Value Reference Range Interpretation Comments POC glucose (test code 126 mg/dL 65-99 H Opera tor Name: Srinivas = 16448-4) [employer] I D: [id number] able: TM Notified wheelchair rental clerk Interpretation Abnormal (test code = 30749-7) [facility] [id number] 15:25:00 Test Item Value Reference Range Interpretation Comments POC glucose (test code 126 mg/dL 65-99 H Opera tor Name: Srinivas = 91010-8) [employer] I D: [id number] able: TM Notified wheelchair rental clerk Interpretation Abnormal (test code = 52852-2) [facility] [id number] 12:49:00 Test Item Value Reference Range Interpretation Comments Activated clotting time See_Comment H Oper ator Name: Pack (test code = 5298) [employer] ice ID: [id number] [Autom ated message] The sy stem which generated this result transmit tristin reference range : 96 - 152 sec. The reference range was not used to int erpret this result as normal/abnormal . Lab Interpretation (test Abnormal code = 73694-9) [facility] [id number] 12:49:00 Test Item Value Reference Range Interpretation Comments Activated clotting time See_Comment H Oper ator Name: Pack (test code = 5298) [employer] ice ID: [id number] [Autom ated message] The sy stem which generated this result transmit tristin reference range : 96 - 152 sec. The reference range was not used to int erpret this result as normal/abnormal . Lab Interpretation (test Abnormal code = 31772-4) [facility] [id number] 12:49:00 Test Item Value Reference Range Interpretation Comments Activated clotting time See_Comment H Oper ator Name: Pack (test code = 5298) [employer] ice ID: [id number] [Autom ated message] The sy stem which generated this result transmit tristin reference range : 96 - 152 sec. The reference range was not used to int erpret this result as normal/abnormal . Lab Interpretation (test Abnormal code = 04221-5) [facility] [id number] 12:49:00 Test Item Value Reference Range Interpretation Comments Activated clotting time See_Comment H Oper ator Name: Pack (test code = 5298) Shae ice ID: [id number] [Autom ated message] The sy stem which generated this result transmit tristin reference range : 96 - 152 sec. The reference range was not used to int erpret this result as normal/abnormal . Lab Interpretation (test Abnormal code = 64188-6) [facility] [id number] 12:49:00 Test Item Value Reference Range Interpretation Comments Activated clotting time See_Comment H Oper ator Name: Pack (test code = 5298) [employer] ice ID: [id number] [Autom ated message] The sy stem which generated this result transmit tristin reference range : 96 - 152 sec. The reference range was not used to int erpret this result as normal/abnormal . Lab Interpretation (test Abnormal code = 00820-0) [facility] [id number] 09:49:00 Test Item Value Reference Range Interpretation Comments Glucose (test code = 128 mg/dL 65-99 H Fastin g 2345-7) reference interval For someone without known diabetes, a glucosevalue >1 25 mg/dL indicates that they may havediabetes an d this should be confirmed with afollow-up test . BUN (test code = 17 mg/dL 7 3094-0) Creatinine (test 0.96 mg/dL 0.70-1.35 code [...] . Sodium (test code = 138 mmol/L 991-805 2608-2) Potassium (test code 3.9 mmol/L 3.5-5.3 = 2823-3) Chloride (test code 100 mmol/L 98-110 = 2075-0) CO2 (test code = 28 mmol/L 20-32 8-9) Calcium (test code = 9.8 mg/dL 8.6-10.3 75133-9) Protein (test code = 7.0 g/dL 6.1-8.1 2885-2) Albumin, S (test 4.5 g/dL 3.6-5.1 code = 1751-7) Globulin, total See_Comment [Automated (test code = message] The ) system [...] bilirubin 0.7 mg/dL 0.2-1.2 (test code = 1974-) Alkaline phosphatase 54 U/L 35-144 (test code = 6768-6) AST (test code = 17 U/L 10-35 1920-8) ALT (test code = 22 U/L 9-46 1742-6) SUBHASH (test code = FASTING:YESAN SUBHASH) UPDATE OR CORRECTION HAS BEEN MADE TO NAME FASTING: YES RAC (test code = Performing RAC) Organization Information: Site ID: RGA Name: [facility] Address: [address] [place] [address] Director: Huber Cruz [facility] Interpretation Abnormal (test code = 42749-5) [facility] with [id number] 09:49:00 Test Item Value Reference Range Interpretation Comments INR (test code = Reference R lisa 6301-6) 0.9-1.1Moderate -i ntensity Warfar in Therapy 2.0-3.0Higher-i nt ensity Warfarin Therapy 3.0-4.0 Prothrombin time See_Comment For additio nal (test code = information, 5902-2) please refer tohttp://educat io n.Actiondiagnost GHash.IOcom/faq/FAQ10 4( This link is being provided for [...] = Performing RAC) Organization Information: Site ID: RGA Name: [facility] Address: [address] [place] [phone] Director: [facility] [id number] 09:49:00 Test Item Value Reference Range Interpretation Comments Glucose (test code = 128 mg/dL 65-99 H Fastin g 2345-7) reference interval For someone without known diabetes, a glucosevalue >1 25 mg/dL indicates that they may havediabetes an d this should be confirmed with afollow-up test . BUN (test code = 17 mg/dL 7-25 3094-0) Creatinine (test 0.96 mg/dL 0.70-1.35 code [...] . Sodium (test code = 138 mmol/L 833-450 5398-2) Potassium (test code 3.9 mmol/L 3.5-5.3 = 2823-3) Chloride (test code 100 mmol/L 98-110 = 2075-0) CO2 (test code = 28 mmol/L 20-32 2027-9) Calcium (test code = 9.8 mg/dL 8.6-10.3 50671-6) Protein (test code = 7.0 g/dL 6.1-8.1 2885-2) Albumin, S (test 4.5 g/dL 3.6-5.1 code = 1751-7) Globulin, total See_Comment [Automated (test code = message] The 74701-2) system which generated this result transmitted reference [...] = Performing RAC) Organization Information: Site ID: RGA Name: [facility] Address: [address] [place] [phone] Director: Huber Cruz [facility] Interpretation Abnormal (test code = 11752-8) [facility] with [id number] 09:49:00 Test Item Value Reference Range Interpretation Comments INR (test code = Reference R lisa 6301-6) 0.9-1.1Moderate -i ntensity Warfar in Therapy 2.0-3.0Higher-i nt ensity Warfarin Therapy 3.0-4.0 Prothrombin time See_Comment For additio nal (test code = information, 5902-2) please refer tohttp://educat io n.Actiondiagnost Matchmaker Videos/faq/FAQ10 4( This link is being provided for [...] = Performing RAC) Organization Information: Site ID: [facility]GA Name: [facility] Address: [address] [place] [phone] Director: Huber Cruz [facility] [id number] 09:49:00 Test Item Value Reference Range Interpretation Comments Glucose (test code = 128 mg/dL 65-99 H Fastin g 2345-7) reference interval For someone without known diabetes, a glucosevalue >1 25 mg/dL indicates that they may havediabetes an d this should be confirmed with afollow-up test . BUN (test code = 17 mg/dL 7- 3094-0) Creatinine (test 0.96 mg/dL 0.70-1.35 code [...] . Sodium (test code = 138 mmol/L 229-908 8200-2) Potassium (test code 3.9 mmol/L 3.5-5.3 = 2823-3) Chloride (test code 100 mmol/L 98-110 = 2075-0) CO2 (test code = 28 mmol/L 20-32 2027-9) Calcium (test code = 9.8 mg/dL 8.6-10.3 17563-6) Protein (test code = 7.0 g/dL 6.1-8.1 2885-2) Albumin, S (test 4.5 g/dL 3.6-5.1 code = 1751-7) Globulin, total See_Comment [Automated (test code = message] The 06014-1) system which generated this result transmitted reference [...] = Performing RAC) Organization Information: Site ID: [facility]: [facility] Address: [address] [place] [phone] Director: Huber Cruz [facility] Interpretation Abnormal (test code = 83201-7) [facility] with [id number] 09:49:00 Test Item Value Reference Range Interpretation Comments INR (test code = Reference R lisa 6301-6) 0.9-1.1Moderate -i ntensity Warfar in Therapy 2.0-3.0Higher-i nt ensity Warfarin Therapy 3.0-4.0 Prothrombin time See_Comment For additio nal (test code = information, 5902-2) please refer tohttp://educat io n.Actiondiagnost Matchmaker Videos/faq/FAQ10 4( This link is being provided for [...] = Performing RAC) Organization Information: Site ID: RGA Name: [facility] Address: [address] [place] [phone] Director: Huber Ferrer HwxgqhhyEBSP-RxV-9 (COVID-19) RNA [Presence] in Respiratory specimen by DORA with probe [id number] 19:43:48 Test Item Value Reference Range Interpretation Comments SARS-CoV-2 (COVID-19) RNA Not detected Not-Detected [Presence] in Respiratory specimen by DORA with probe detection (test code = 24180-7) Whether patient is employed in a healthcare setting (test code = 70262-7) Whether the patient has symptoms related to condition of interest (test code = 89584-1) Patient was hospitalized because of this condition (test code = 40952-0) Whether the patient was admitted to intensive care unit (ICU) for condition of interest (test code = 92189-3) Whether patient resides in a congregate care setting (test code = 49110-9) [facility]
[2022-08-12] MEDS ORDERED: Ringers Lactate 1,000 ML IV ONE (18:49)
[2022-08-12 18:55] LABS: Urine Blood Negative (Negative); Urine Glucose 3+ (Negative); Urine Protein 1+ (Negative); Urine Specific Gravity 1.025 (1.005-1.030)
[2022-08-12 18:55] LABS: Absolute Lymphocytes (CBC) 1.6 K/uL (0.7-4.9); Lymphocytes % 19.8 % (15.3-44.8); MCV 88.2 fL (80-100); MPV 8.7 fL (7.6-11.3); RBC Red Blood Cell Count 5.33 M/uL (4.33-5.43)
[2022-08-12 19:33] LABS: Protime INR 1.07
[2022-08-12 19:58] LABS: ALT/SGPT 300 U/L (16-61); Alkaline Phosphatase 377 U/L (45-117); BUN Blood Urea Nitrogen 24 mg/dL (7-18); Bicarbonate 25 mmol/L (21-32); Bilirubin Direct 0.9 mg/dL (0-0.2); Bilirubin Total 1.5 mg/dL (0.2-1.0); Glomerular Filtration Rate 81 ml/min (=/>90); Glucose Level 102 mg/dL (74-106); Magnesium 2.6 mg/dL (1.6-2.4); NT PRO-BNP 38 pg/mL (<125); Potassium 4.1 mmol/L (3.5-5.1); Protein, Total 6.9 g/dL (6.4-8.2); Sodium Level 136 mmol/L (136-145)
[2022-08-12 20:00] LABS: Troponin High Sensitivity < 3.0 pg/mL (<58.9)
[2022-08-12 20:02] LABS: AST/SGOT 508 U/L (15-37)
--- NOTE | 2022-08-12 20:03 | RAD REPORT ---
EXAM DESCRIPTION: CT - Angio Aorta For Dissection - 08/12/2022 7:28 pm CLINICAL HISTORY: chest pain, weakness, flank pain, back pain COMPARISON: Chest Single View dated 08/05/2022; CHEST PA AND LAT 2 VIEW dated 05/26/2011 TECHNIQUE: Dynamically enhanced 3 mm thick images of the chest, abdomen, and upper pelvis were obtai delmy during administration of approximately 124mL Isovue 370 IV contrast. Sagittal and coronal reconst ructions as well as maximal intensity projection reconstruction were generated and reviewed per an rtic angiography protocol. All CT scans are performed using dose optimization technique as appropriate and may include automated exposure control or mA/KV adjustment according to patient size. FINDINGS: Aorta is normal in diameter with no dissection or other acute aortic findings. Moderate bu rden of calcified and noncalcified atherosclerotic plaque along the arch, mid descending thoracic aor ta, and throughout the infrarenal abdominal aorta, with plaque surface irregularity. Reconstruction i mages show no significant findings. Pulmonary arteries are normal as well. No mass or infiltrate in the lung parenchyma. No pleural thickening, pleural effusion or pneumothorax . No abnormal hilar adenopathy or lung masses. A single enlarged posterior mediastinal node just below the level of the lucia measuring 1.4 centimeter. No chest wall mass or abnormal axillary lymphadenop athy. Celiac, SMA and renal arteries show no suspicious findings. Evaluation of the solid abdominal organs reveals an irregular 3.8 x 2.9 centimeter mass involving the distal pancreatic body and tail. Bulky boston caval and retroperitoneal lymph nodes, the largest in t he precaval space, measuring 4.6 x 2.9 centimeter. Small prevertebral enlarged lymph nodes as well. I nnumerable hypoattenuating lesions throughout the liver, the largest interposed between the caudate l obe and segment 6, measuring 6.4 x 4.7 centimeter in greatest dimension and causes moderate mass effe ct on the IVC. Bilateral inguinal hernias containing fat. No suspicious osseous findings. IMPRESSION: No acute abnormalities on CT angiogram of the aorta. 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 Metastatic adenopathy in the portacaval and retroperitoneal stat ions, as well as a single posterior mediastinal nod enlarged lymph node. The findings were communicated to Jose Valentine on 08/12/2022 at 20:00 hours.
[2022-08-12] MEDS ORDERED: LORazepam 2 MG/ML VIAL ONE (20:07)
[2022-08-12 20:24] LABS: SARS-CoV-2 Antigen Rapid Res Negative (Negative)
[2022-08-12] MEDS ORDERED: PANTOPRAZOLE 40 MG INJ ONE (20:41)
[2022-08-12] MEDS ORDERED: NA CHLORIDE 0.9% 100 ML ONE (20:41)
[2022-08-12] MEDS ORDERED: PIPERACIL/TAZO 3.375 GM VIAL IV ONE (20:42)
[2022-08-12] MEDS ORDERED: NA CHLORIDE 0.9% 1,000 ML ONE (20:42)
[2022-08-12] MEDS ORDERED: MORPHINE 4 MG/ML SYR ONE (21:57)
[2022-08-12] MEDS ORDERED: ONDANSETRON 4 MG/2 ML VIAL ONE (21:57)
[2022-08-13 03:38] VITALS: TEMP 97.7; O2SAT 99
[2022-08-13 03:40] VITALS: BP 130/75
--- NOTE | 2022-08-26 16:23 | EDPHYS ---
Physician Documentation [facility] Name: Amanuel Connolly Jr Age: 67 yrs Sex: Male : 1955 Arrival Date: 08/12/2022 Time: 16:43 Bed 6 Private MD: ED Physician Rashid Samson HPI: 08/12 17:58 This 67 yrs old Male presents to ER via Ambulatory with complaints of Urinary Problem, jmm Low Back Pain, Chest Pain. 17:58 The patient or guardian reports chest pain that is located primarily in the substernal [facility] area. The pain radiates to Associated signs and symptoms: Pertinent positives:. This is a 67-year-old male with history of diabetes mellitus, hyperlipidemia, hypertension the presents emerged department with complaints of substernal chest pain which began initially about a week ago. Patient was seen in the ED and diagnosed with costochondritis. Patient states his pain relief for approximately a day but then returned. Chest pain has been constant since but also states having back pain, fatigue, dark urination. States that approximately 3 weeks ago he was treated with oral antibiotics for sinus congestion. Patient discontinued this after 5 days due to weakness but has had ongoing fatigue since.. Historical: - Allergies: 17:13 No Known Allergies; ph - PMHx: 17:13 diabetes mellitus; Hypercholesterolemia; Hypertensive disorder; ph - PSHx: 17:13 Cholecystectomy; heart stent; ph - Immunization history:: Adult Immunizations unknown. ROS: 17:58 Constitutional: Positive for fatigue. jmm 17:58 Respiratory: Positive for cough. 17:58 Back: Positive for pain with movement, radiated pain. 17:58 Neuro: Positive for weakness. 17:58 All other systems are negative. Exam: 17:58 Constitutional: This is a well developed, well nourished patient who is awake, alert, jmm and in no acute distress. Head/Face: atraumatic. Eyes: EOMI, no conjunctival erythema appreciated ENT: Moist Mucus Membranes Neck: Trachea midline, Supple Chest/axilla: Normal chest wall appearance and motion. Cardiovascular: Regular rate and rhythm. No edema appreciated Respiratory: Normal respirations, no respiratory distress appreciated Abdomen/GI: Non distended Back: Normal ROM Skin: General appearance color normal MS/ Extremity: Moves all extremities, no obvious deformities appreciated, no edema noted to the lower extremities Neuro: Awake and alert Psych: Behavior is normal, Mood is normal, Patient is cooperative and pleasant Vital Signs: 17:09 BP 116 / 72; Pulse 86; Resp 18; Temp 97.7; Pulse Ox 99% on R/A; Weight 97.52 kg; Height ph 5 ft. 10 in. ; 21:04 BP 134 / 75; Pulse 74; Resp 18; Pulse Ox 99% ; mb9 21:39 BP 130 / 75; Pulse 84; Resp 18; Pulse Ox 99% ; mb9 17:09 Body Mass Index 30.85 (97.52 kg, 177.8 cm) ph MDM: 17:58 Patient medically screened. [facility] 20:11 Differential diagnosis: arthritis, strain. Data reviewed: vital signs, nurses notes, [facility] lab test result(s), EKG, radiologic studies, CT scan. Consideration of Admission/Observation Patient was admitted/placed on observation. Escalation of care including admission/observation considered. I considered the following discharge prescriptions or medication management in the emergency department Medications were administered in the Emergency Department. See MAR. Test considered but Not performed: MRI: pancreatic mri. Care significantly affected by the following chronic conditions: Diabetes, Hypertension, hypercholesterolemia . Counseling: I had a detailed discussion with the patient and/or guardian regarding: the historical points, exam findings, and any diagnostic results supporting the discharge/admit diagnosis, lab results, radiology results, the need to transfer to another facility, for higher level of care, [facility] does not immediately have the required specialist. 08/12 17:58 Order name: Basic Metabolic Panel; Complete Time: 20:03 [facility] 08/12 20:36 Interpretation: K 4.1. flora 08/12 17:58 Order name: CBC with Diff; Complete Time: 19:10 [facility] 08/12 17:58 Order name: LFT's; Complete Time: 20:03 [facility] 08/12 17:58 Order name: Magnesium; Complete Time: 20:03 [facility] 08/12 17:58 Order name: NT PRO-BNP; Complete Time: 20:03 [facility] 08/12 17:58 Order name: PT-INR; Complete Time: 19:38 [facility] 08/12 17:58 Order name: Troponin HS; Complete Time: 20:03 [facility] 08/12 18:55 Order name: Urine Dipstick-Ancillary; Complete Time: 19:10 [facility] 08/12 19:57 Order name: CREATININE WHOLE BLOOD; Complete Time: 19:57 [facility] 08/12 20:06 Order name: SARS-COV-2 Antigen Rapid; Complete Time: 20:32 bb 08/12 20:37 Order name: Lipase; Complete Time: 21:54 flora 08/12 18:08 Order name: CT Aorta for Dissection; Complete Time: 20:05 [facility] 08/12 17:58 Order name: Cardiac monitoring; Complete Time: 18:28 [facility] 08/12 17:58 Order name: EKG - Nurse/Tech; Complete Time: 19:23 [facility] 08/12 17:58 Order name: IV Saline Lock; Complete Time: 18:49 [facility] 08/12 17:58 Order name: Labs collected and sent; Complete Time: 18:49 [facility] 08/12 17:58 Order name: O2 Per Protocol; Complete Time: 18:28 [facility] 08/12 17:58 Order name: O2 Sat Monitoring; Complete Time: 18:28 [facility] 08/12 18:11 Order name: Urine Dipstick-Ancillary (obtain specimen); Complete Time: 18:49 jm Administered Medications: 18:36 CANCELLED (Duplicate Order): Lactated Ringers Solution IV 1000 ml IV at 150 ml/hr [facility] continuous 19:08 Drug: Lactated Ringers Solution IV 1000 ml Route: IV; Rate: 1000 bolus; Site: right mb9 antecubital; 20:52 Follow up: Response: No adverse reaction; IV Status: Completed infusion mb9 20:10 Drug: Ativan IVP 1 mg Route: IVP; Site: right antecubital; mb9 21:01 Follow up: Response: No adverse reaction mb9 20:52 Drug: Ativan IVP 1 mg Route: IVP; Site: right antecubital; mb9 21:01 Follow up: Response: No adverse reaction mb9 20:52 Drug: NS 0.9% IV 1000 ml Route: IV; Rate: 125 ml/hr; Site: right antecubital; mb9 20:52 Drug: Piperacillin-Tazobactam IVPB 3.375 grams Route: IVPB; Infused Over: 60 mins; mb9 Site: right antecubital; 21:58 Follow up: Response: No adverse reaction; IV Status: Completed infusion mb9 21:01 Drug: Pantoprazole IVP 40 mg Route: IVP; Site: right antecubital; mb9 21:58 Follow up: Response: No adverse reaction mb9 21:57 Drug: Ondansetron IVP 4 mg Route: IVP; Site: right antecubital; mb9 21:59 Follow up: Response: No adverse reaction mb9 21:58 Drug: morphine IVP or IV 4 mg Route: IVP; Infused Over: 4 mins; Site: right antecubital;mb9 21:59 Follow up: Response: No adverse reaction mb9 Disposition Summary: 08/12/22 20:26 Transfer Ordered Transfer Location: [facility] flora Reason: Higher level of care flora Condition: Fair flora Problem: new flora Symptoms: are unchanged flora Accepting Physician: to [facility](08/12/22 22:26) mb9 Diagnosis - 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 suzy almonte 21:45 20:26 to [facility] flora mb9 21:55 21:45 to [facility] rosas flora 22:26 21:55 to [facility] mb9
--- NOTE | 2022-08-26 16:23 | ER ---
Nurse's Notes [facility] Name: Amanuel Connolly Jr Age: 67 yrs Sex: Male : 1955 Arrival Date: 08/12/2022 Time: 16:43 Bed 6 Private MD: Diagnosis: Malignant neoplasm of tail of pancreas;Upper abdominal pain, unspecified;Chest pain, unspecified;Malignant neoplasm of pancreatic duct Presentation: 08/12 17:09 Chief complaint: Patient states: Was seen last Monday in ED for chest pain, dx w/ ph costochondritis, pain has not improved, is now also having in lower back area and orange urine, also reports fatigue and dizziness. Coronavirus screen: Vaccine status: Patient reports receiving the 2nd dose of the covid vaccine. Ebola Screen: No symptoms or risks identified at this time. Initial Sepsis Screen: Does the patient meet any 2 criteria? No. Patient's initial sepsis screen is negative. Does the patient have a suspected source of infection? Yes: Dysuria/Frequency/Urgency/UTI. Risk Assessment: Do you want to hurt yourself or someone else? Patient reports no desire to harm self or others. Onset of symptoms was August 12, 2022. 17:09 Method Of Arrival: Ambulatory ph 17:09 Acuity: NI 3 ph Historical: - Allergies: 17:13 No Known Allergies; ph - PMHx: 17:13 diabetes mellitus; Hypercholesterolemia; Hypertensive disorder; ph - PSHx: 17:13 Cholecystectomy; heart stent; ph - Immunization history:: Adult Immunizations unknown. Screenin:27 [facility] ED Fall Risk Assessment (Adult) History of falling in the last 3 months, ph including since admission No falls in past 3 months (0 pts) Confusion or Disorientation No (0 pts) Intoxicated or Sedated No (0 pts) Impaired Gait No (0 pts) Mobility Assist Device Used No (0 pt) Altered Elimination No (0 pt) Score/Fall Risk Level 0 - 2 = Low Risk Oriented to surroundings, Maintained a safe environment, Educated pt \T\ family on fall prevention, incl call for assistance when getting out of bed. Abuse screen: Denies threats or abuse. Nutritional screening: No deficits noted. Tuberculosis screening: No symptoms or risk factors identified. Assessment: 18:50 General: Appears in no apparent distress. Behavior is calm, cooperative, appropriate mb9 for age. Pain: Complains of pain in back and chest Pain does not radiate. Pain currently is 4 out of 10 on a pain scale. Quality of pain is described as throbbing, Pain began gradually, Aggravated by coughing. Neuro: Level of Consciousness is awake, alert, obeys commands, Oriented to person, place, time, situation, Appropriate for age. Cardiovascular: Heart tones S1 S2 present Patient's skin is warm and dry. Rhythm is regular. Respiratory: Airway is patent Respiratory effort is even, unlabored, Respiratory pattern is regular, symmetrical, Breath sounds are clear bilaterally. 18:50 GI: No signs and/or symptoms were reported involving the gastrointestinal system. : mb9 Urine is tea colored Reports burning with urination. Derm: Skin is pink, warm \T\ dry. Musculoskeletal: Range of motion: intact in all extremities. 20:00 Reassessment: No changes from previously documented assessment. Patient and/or family mb9 updated on plan of care and expected duration. Pain level reassessed. Patient is alert, oriented x 3, equal unlabored respirations, skin warm/dry/pink. 21:39 Reassessment: No changes from previously documented assessment. Patient and/or family mb9 updated on plan of care and expected duration. Pain level reassessed. Patient is alert, oriented x 3, equal unlabored respirations, skin warm/dry/pink. 21:45 Reassessment: Report given to [facility]. mb9 Vital Signs: 17:09 BP 116 / 72; Pulse 86; Resp 18; Temp 97.7; Pulse Ox 99% on R/A; Weight 97.52 kg; Height ph 5 ft. 10 in. ; 21:04 BP 134 / 75; Pulse 74; Resp 18; Pulse Ox 99% ; mb9 21:39 BP 130 / 75; Pulse 84; Resp 18; Pulse Ox 99% ; mb9 17:09 Body Mass Index 30.85 (97.52 kg, 177.8 cm) ph ED Course: 16:43 Patient arrived in ED. [id number] 17:13 Triage completed. ph 17:14 Arm band placed on Patient placed in waiting room, Patient notified of wait time. ph 17:28 Suman Valentine PA is PHCP. [facility] 17:28 Ponce Suh MD is Attending Physician. [facility] 18:27 Dasia Johnson, RN is Primary Nurse. ph 18:28 Placed in gown. Bed in low position. Call light in reach. Side rails up X 1. Client ph placed on continuous cardiac and pulse oximetry monitoring. NIBP monitoring applied. monitoring analyst on. 18:49 Basic Metabolic Panel Sent. zm 18:49 LFT's Sent. zm 18:49 CBC with Diff Sent. zm 18:49 Magnesium Sent. zm 18:49 NT PRO-BNP Sent. zm 18:49 PT-INR Sent. zm 18:49 Troponin HS Sent. zm 18:49 Inserted saline lock: 20 gauge in right antecubital area, using aseptic technique. zm Blood collected. 18:49 Urine collected: clean catch specimen, tea colored. zm 19:23 Basic Metabolic Panel Sent. mb9 19:23 LFT's Sent. mb9 19:23 Magnesium Sent. mb9 19:23 NT PRO-BNP Sent. mb9 19:23 PT-INR Sent. mb9 19:23 Troponin HS Sent. mb9 19:30 CT Aorta for Dissection In Process Unspecified. EDMS 20:00 Dr. Samson initiated transfer to [facility], spoke with Tej. wm 20:04 Attending Physician role handed off by Ponce Suh MD flora 20:04 Rashid Samson MD is Attending Physician. flora 20:10 SARS-COV-2 Antigen Rapid Sent. mb9 20:59 Pt accepted to [facility] by Stuart Pinedo \T\ 2037 per Tej Ruggiero. wm 21:42 Patient transferred, IV remains in place. mb9 21:45 No provider procedures requiring assistance completed. mb9 21:50 Attending Physician role handed off by Rashid Samson MD mb9 21:50 PHCP role handed off by Suman Valentine PA mb9 21:54 Rashid Samson MD is Attending Physician. flora Administered Medications: 18:36 CANCELLED (Duplicate Order): Lactated Ringers Solution IV 1000 ml IV at 150 ml/hr jmm continuous 19:08 Drug: Lactated Ringers Solution IV 1000 ml Route: IV; Rate: 1000 bolus; Site: right mb9 antecubital; 20:52 Follow up: Response: No adverse reaction; IV Status: Completed infusion mb9 20:10 Drug: Ativan IVP 1 mg Route: IVP; Site: right antecubital; mb9 21:01 Follow up: Response: No adverse reaction mb9 20:52 Drug: Ativan IVP 1 mg Route: IVP; Site: right antecubital; mb9 21:01 Follow up: Response: No adverse reaction mb9 20:52 Drug: NS 0.9% IV 1000 ml Route: IV; Rate: 125 ml/hr; Site: right antecubital; mb9 20:52 Drug: Piperacillin-Tazobactam IVPB 3.375 grams Route: IVPB; Infused Over: 60 mins; mb9 Site: right antecubital; 21:58 Follow up: Response: No adverse reaction; IV Status: Completed infusion mb9 21:01 Drug: Pantoprazole IVP 40 mg Route: IVP; Site: right antecubital; mb9 21:58 Follow up: Response: No adverse reaction mb9 21:57 Drug: Ondansetron IVP 4 mg Route: IVP; Site: right antecubital; mb9 21:59 Follow up: Response: No adverse reaction mb9 21:58 Drug: morphine IVP or IV 4 mg Route: IVP; Infused Over: 4 mins; Site: right antecubital;mb9 21:59 Follow up: Response: No adverse reaction mb9 Medication: 18:29 VIS not applicable for this client. ph Outcome: 20:26 ER care complete, transfer ordered by MD. hines 21:39 Transferred by [facility] to [facility], Transfer form completed. mb9 21:39 Condition: stable 21:39 Instructed on the need for transfer. 21:45 Patient left the ED. mb9 22:26 Patient left the ED. mb9 Signatures: Dispatcher [employer] Rashid Armsa MD MD cha Mickail, Joel, PA PA jmm Hall, Patricia, RN RN ph Marsh, Wendy wm Jeffries, Jennifer jj6 Martinez, Zaina zm Breneman, Mary Beth, RN RN mb9
== END 2022-08-12 22:26 | disposition short-term general hospital (02) ==
LOC: ER 16:42
DX: C25.2 Malignant neoplasm of tail of pancreas (principal); C25.3 Malignant neoplasm of pancreatic duct; R10.10 Upper abdominal pain, unspecified; Z20.822 Contact with and (suspected) exposure to COVID-19; I10 Essential (primary) hypertension; Z95.818 Presence of other cardiac implants and grafts
CPT/HCPCS: 96365; 96361; 85025; 80048; 36415; 83735; 85610; 82565; 80076; 81003; 84484; 83690; 83880; 71275; 74175; 96375; 99285; 87811; Q9967; J2543; C9113; J2405; J7120; J7030